=== PATIENT | female | born 1970 | race African-American/Black ===

== ENCOUNTER 2016-10-22 08:58 | Inpatient (IN) | payer MEDICAID ==
[~2016-10-22] VITALS: Ht 172.7 cm; Wt 98.4 kg
[~2016-10-22 08:58] MED LIST: CIPR-140 PO; INSU100V12 SQ; LITH300C3 PO; METF500T4 PO; OLAN5TAB2 PO
[2016-10-22 09:16] LABS: GLUCOSE,POINT OF CARE 127 MG/DL (70-110)
[2016-10-22 09:49] LABS: BASOPHILS % (AUTO) 0.8 % (0.0-2.0); EOSINOPHILS % (AUTO) 1.4 % (1.0-6.0); HEMOGLOBIN 14.6 g/dL (12.0-16.0); LYMPHOCYTES # (AUTO) 2.4 K/uL (1.0-4.8); LYMPHOCYTES % (AUTO) 52.8 % (22.0-44.0); MEAN CORPUSCULAR HGB CONC 33.8 G/dL (31.0-37.0); MEAN CORPUSCULAR VOLUME 95 fL (80-100); MONOCYTES # (AUTO) 0.3 K/uL (0.1-1.0); MONOCYTES % (AUTO) 7.5 % (2.0-9.0); NEUTROPHILS # (AUTO) 1.7 K/uL (1.8-7.7); NEUTROPHILS % (AUTO) 37.5 % (40.0-70.0); PLATELET COUNT (AUTO) 220 K/uL (150-450); RED BLOOD CELL COUNT(AUTO) 4.55 MIL/uL (4.00-5.20); RED CELL DISTRIBUTION WIDTH 14.7 % (11.5-14.5); WHITE BLOOD COUNT (AUTO) 4.5 K/uL (4.5-11.0)
[2016-10-22 10:00] LABS: ANION GAP 7 mmol/L (8-16); CALCIUM, TOTAL 9.1 mg/dL (8.8-10.5); CARBON DIOXIDE 27 mmol/L (22-29); CHLORIDE 104 mmol/L (98-107); CREATININE 0.95 mg/dL (0.60-1.30); GLOMERULAR FILTR. RATE CALC > 60 mL/min (>60); POTASSIUM 3.6 mmol/L (3.5-5.1); SODIUM SERUM 138 mmol/L (136-145); UREA NITROGEN, BLOOD 8 mg/dL (7-18)
[2016-10-22 10:06] LABS: ALANINE AMINOTRANSFERASE 75 U/L (12-78); ALBUMIN 3.5 g/dL (3.4-5.0); ASPARTATE AMINOTRANSFERASE 72 U/L (15-37); BILIRUBIN,TOTAL 0.3 mg/dL (0.1-1.0); TOTAL PROTEIN, SERUM 8.3 g/dL (6.4-8.2)
[2016-10-22 10:12] LABS: LITHIUM < 0.20 mmol/L (0.60-1.20)
[2016-10-22 10:14] LABS: APPEARANCE,URINE CLOUDY (CLEAR); GLUCOSE, URINE (UA) NEGATIVE (NEGATIVE); KETONES,URINE NEGATIVE (NEGATIVE); LEUKOCYTE ESTERASE ,URINE SMALL (NEGATIVE); OCCULT BLOOD,URINE NEGATIVE (NEGATIVE); PROTEIN,URINE NEGATIVE (NEGATIVE)
[2016-10-22 10:24] LABS: RBC,URINE None Seen /HPF (0-2)
[2016-10-22 10:25] LABS: SQUAMOUS EPITHELIAL CELL,UR Many /LPF (None Seen)
[2016-10-22] MEDS ORDERED: LORazepam 2 MG TABLET PO ONE (12:00)
[2016-10-22] MEDS ORDERED: OLANZapine 5 MG TABLET PO ONE (12:00)
[2016-10-22] MEDS ORDERED: HALOPERIDOL 5 MG TABLET PO PRN (12:15)
[2016-10-22] MEDS ORDERED: ZOLPIDEM TARTRATE 10 MG TABLET PO PRN (12:15)
[2016-10-22] MEDS ORDERED: TraMADol HCL 50 MG TABLET PO ONE (12:15)
[2016-10-22] MEDS ORDERED: CEPHALEXIN MONOHYDRATE 500 MG CAPSULE PO ONE (12:30)
[2016-10-22 14:15] LABS: GLUCOSE,POINT OF CARE 93 MG/DL (70-110)
[2016-10-22 16:08] VITALS: BP 108/68
[2016-10-22] MEDS: LITHIUM CARBONATE 300 MG CAPSULE PO SCH (16:26)
[2016-10-22] MEDS: LORazepam 2 MG TABLET PO PRN (16:26)
[2016-10-22] MEDS: CEPHALEXIN MONOHYDRATE 500 MG CAPSULE PO SCH (16:41)
[2016-10-22] MEDS ORDERED: ACETAMINOPHEN 325 MG TABLET PO PRN (17:15)
[2016-10-22] MEDS: OLANZapine 7.5 MG TABLET PO SCH (20:20)
[2016-10-22] MEDS ORDERED: INSULIN ASPART 100 UNITS/ML SQ PRN (22:00)
[2016-10-22] MEDS ORDERED: DEXTROSE 50%-WATER 25 GM/50 ML SYRINGE IVP PRN (22:00)
[2016-10-22] MEDS ORDERED: GLUCAGON,HUMAN RECOMBINANT 1 MG VIAL IM PRN (22:15)
[2016-10-23] MEDS: MetFORMIN HCL 500 MG TABLET PO SCH (06:19)
[2016-10-23 06:31] LABS: GLUCOSE,POINT OF CARE 118 MG/DL (70-110)
[2016-10-23 06:50] VITALS: BP 102/67
[2016-10-23 08:15] VITALS: BP 124/76
[2016-10-23] MEDS: INSULIN DETEMIR 100 UNITS/ML SQ SCH (09:00)
[2016-10-23] MEDS: LITHIUM CARBONATE 300 MG CAPSULE PO SCH ×2 (09:02→16:07)
[2016-10-23] MEDS: LORazepam 2 MG TABLET PO PRN (09:02)
[2016-10-23] MEDS: CEPHALEXIN MONOHYDRATE 500 MG CAPSULE PO SCH ×3 (09:02→16:07)
[2016-10-23] MEDS: CIPROFLOXACIN HCL 250 MG TABLET PO SCH ×2 (09:02→16:07)
[2016-10-23] MEDS: NICOTINE 14 MG/24 HOUR PATCH TD SCH (09:02)
[2016-10-23 16:09] VITALS: BP 132/68
[2016-10-23 16:56] LABS: GLUCOSE,POINT OF CARE 99 MG/DL (70-110)
[2016-10-23] MEDS: OLANZapine 7.5 MG TABLET PO SCH (20:39)
[2016-10-23 20:46] LABS: GLUCOSE COMMENT 1 Received Meds; GLUCOSE,POINT OF CARE 146 MG/DL (70-110)
[2016-10-23] MEDS: INSULIN ASPART 100 UNITS/ML SQ PRN (20:53)
[2016-10-24 04:51] VITALS: BP 106/65
[2016-10-24 06:06] LABS: GLUCOSE,POINT OF CARE 98 MG/DL (70-110)
[2016-10-24] MEDS: MetFORMIN HCL 500 MG TABLET PO SCH (06:32)
[2016-10-24] MEDS: CEPHALEXIN MONOHYDRATE 500 MG CAPSULE PO SCH ×3 (08:23→16:22)
[2016-10-24] MEDS: LITHIUM CARBONATE 300 MG CAPSULE PO SCH ×2 (08:23→16:22)
[2016-10-24] MEDS: CIPROFLOXACIN HCL 250 MG TABLET PO SCH ×2 (08:23→16:22)
[2016-10-24] MEDS: LORazepam 2 MG TABLET PO PRN ×2 (08:23→20:29)
[2016-10-24] MEDS: NICOTINE 14 MG/24 HOUR PATCH TD SCH (08:24)
[2016-10-24] MEDS: INSULIN DETEMIR 100 UNITS/ML SQ SCH (09:45)
[2016-10-24 12:22] LABS: GLUCOSE,POINT OF CARE 103 MG/DL (70-110)
[2016-10-24 16:08] VITALS: BP 125/72
[2016-10-24 16:37] LABS: GLUCOSE,POINT OF CARE 169 MG/DL (70-110)
[2016-10-24] MEDS: INSULIN ASPART 100 UNITS/ML SQ PRN (17:13)
[2016-10-24] MEDS: OLANZapine 7.5 MG TABLET PO SCH (20:24)
[2016-10-24 20:45] LABS: GLUCOSE,POINT OF CARE 108 MG/DL (70-110)
[2016-10-25] MEDS: MetFORMIN HCL 500 MG TABLET PO SCH (06:43)
[2016-10-25 06:46] LABS: GLUCOSE,POINT OF CARE 112 MG/DL (70-110)
[2016-10-25 07:07] VITALS: BP 116/67
[2016-10-25 08:03] VITALS: BP 109/79
[2016-10-25] MEDS: LITHIUM CARBONATE 300 MG CAPSULE PO SCH ×2 (09:22→16:32)
[2016-10-25] MEDS: CEPHALEXIN MONOHYDRATE 500 MG CAPSULE PO SCH ×3 (09:22→16:32)
[2016-10-25] MEDS: NICOTINE 14 MG/24 HOUR PATCH TD SCH (09:22)
[2016-10-25] MEDS: LORazepam 2 MG TABLET PO PRN ×2 (09:22→16:32)
[2016-10-25] MEDS: CIPROFLOXACIN HCL 250 MG TABLET PO SCH ×2 (09:22→16:32)
[2016-10-25] MEDS: INSULIN DETEMIR 100 UNITS/ML SQ SCH (09:25)
[2016-10-25 11:36] LABS: GLUCOSE,POINT OF CARE 104 MG/DL (70-110)
[2016-10-25 16:46] VITALS: BP 109/75
[2016-10-25] MEDS: INSULIN ASPART 100 UNITS/ML SQ PRN (17:15)
[2016-10-25 17:26] LABS: GLUCOSE COMMENT 1 Received Meds; GLUCOSE,POINT OF CARE 144 MG/DL (70-110)
[2016-10-25] MEDS: OLANZapine 7.5 MG TABLET PO SCH (20:49)
[2016-10-26 06:13] LABS: GLUCOSE,POINT OF CARE 95 MG/DL (70-110)
[2016-10-26] MEDS: MetFORMIN HCL 500 MG TABLET PO SCH (06:41)
[2016-10-26 08:03] VITALS: BP 100/56
[2016-10-26] MEDS: CEPHALEXIN MONOHYDRATE 500 MG CAPSULE PO SCH (08:19)
[2016-10-26] MEDS: LITHIUM CARBONATE 300 MG CAPSULE PO SCH (08:20)
[2016-10-26] MEDS: NICOTINE 14 MG/24 HOUR PATCH TD SCH (08:20)
[2016-10-26] MEDS: CIPROFLOXACIN HCL 250 MG TABLET PO SCH (08:20)
[2016-10-26] MEDS: LORazepam 2 MG TABLET PO PRN (08:28)
[2016-10-26] MEDS: INSULIN DETEMIR 100 UNITS/ML SQ SCH (08:56)
[2016-10-26 12:11] LABS: GLUCOSE,POINT OF CARE 104 MG/DL (70-110)
[2016-10-26] MEDS ORDERED: CEPH500 PO (12:41)
== END 2016-10-26 13:05 | disposition home or self-care (01) | DRG 750 ==
LOC: EMS 08:59 → B3A 12:22
PROVIDERS: ADMIT Psychiatry & Neurology Psychiatry; ATTEND Psychiatry & Neurology Psychiatry
DX: F25.9 Schizoaffective disorder, unspecified (principal); N39.0 Urinary tract infection, site not specified; R45.851 Suicidal ideations; E11.9 Type 2 diabetes mellitus without complications; F14.10 Cocaine abuse, uncomplicated; D25.9 Leiomyoma of uterus, unspecified; E87.6 Hypokalemia; F31.9 Bipolar disorder, unspecified; F17.210 Nicotine dependence, cigarettes, uncomplicated; G89.29 Other chronic pain; M54.9 Dorsalgia, unspecified; Z88.6 Allergy status to analgesic agent; Z79.899 Other long term (current) drug therapy
CPT/HCPCS: 82962; 87081; 87086; 99285; G0480

== ENCOUNTER 2016-11-01 20:31 | Inpatient (IN) | payer MEDICAID ==
[~2016-11-01] VITALS: Ht 172.7 cm; Wt 93.6 kg
[~2016-11-01 20:31] MED LIST changes: +CEPH500 PO
[2016-11-01 20:46] LABS: GLUCOSE,POINT OF CARE 91 MG/DL (70-110)
[2016-11-01 21:23] LABS: BASOPHILS # (AUTO) 0.09 K/uL (0.00-0.20); BASOPHILS % (AUTO) 1.4 % (0.0-2.0); EOSINOPHILS # (AUTO) 0.05 K/uL (0.00-0.70); EOSINOPHILS % (AUTO) 0.83 % (1.0-6.0); HEMATOCRIT 40.9 % (36-46); HEMOGLOBIN 13.8 g/dL (12.0-16.0); LYMPHOCYTES # (AUTO) 2.3 K/uL (1.0-4.8); LYMPHOCYTES % (AUTO) 35.5 % (22.0-44.0); MEAN CORPUSCULAR HEMOGLOBIN 31.6 pg (26.0-34.0); MEAN CORPUSCULAR HGB CONC 33.7 G/dL (31.0-37.0); MEAN CORPUSCULAR VOLUME 94 fL (80-100); MONOCYTES # (AUTO) 0.5 K/uL (0.1-1.0); MONOCYTES % (AUTO) 7.2 % (2.0-9.0); NEUTROPHILS # (AUTO) 3.6 K/uL (1.8-7.7); PLATELET COUNT (AUTO) 250 K/uL (150-450); RED BLOOD CELL COUNT(AUTO) 4.37 MIL/uL (4.00-5.20); RED CELL DISTRIBUTION WIDTH 14.5 % (11.5-14.5); WHITE BLOOD COUNT (AUTO) 6.5 K/uL (4.5-11.0)
[2016-11-01 21:29] LABS: ANION GAP 10 mmol/L (8-16); CALCIUM, TOTAL 9.1 mg/dL (8.8-10.5); CARBON DIOXIDE 26 mmol/L (22-29); CHLORIDE 101 mmol/L (98-107); CREATININE 0.81 mg/dL (0.60-1.30); GLOMERULAR FILTR. RATE CALC > 60 mL/min (>60); POTASSIUM 3.4 mmol/L (3.5-5.1); SODIUM SERUM 137 mmol/L (136-145); UREA NITROGEN, BLOOD 6 mg/dL (7-18)
[2016-11-01 21:35] LABS: ALANINE AMINOTRANSFERASE 76 U/L (12-78); ALBUMIN 3.7 g/dL (3.4-5.0); ASPARTATE AMINOTRANSFERASE 72 U/L (15-37); BILIRUBIN,TOTAL 0.3 mg/dL (0.1-1.0); TOTAL PROTEIN, SERUM 8.7 g/dL (6.4-8.2)
[2016-11-01 21:41] LABS: RBC MORPHOLOGY COMMENT NORMAL RBC MORPH
[2016-11-01] MEDS ORDERED: ZOLPIDEM TARTRATE 10 MG TABLET PO PRN (22:15)
[2016-11-01] MEDS ORDERED: HALOPERIDOL 5 MG TABLET PO ONE (22:30)
[2016-11-01] MEDS ORDERED: LORazepam 2 MG TABLET PO ONE (22:30)
[2016-11-01] MEDS ORDERED: DiphenhydrAMINE HCL 25 MG CAPSULE PO ONE (22:30)
[2016-11-01] MEDS ORDERED: KETOROLAC TROMETHAMINE 60 MG/2 ML VIAL IM ONE (23:00)
[2016-11-01] MEDS ORDERED: ACETAMINOPHEN 500 MG TABLET PO ONE (23:00)
[2016-11-01] MEDS ORDERED: POTASSIUM CHLORIDE 20 MEQ ER TABLET PO ONE (23:00)
[2016-11-02 00:23] VITALS: BP 101/72
[2016-11-02] MEDS: NICOTINE 14 MG/24 HOUR PATCH TD SCH (09:24)
[2016-11-02] MEDS ORDERED: POTASSIUM CHLORIDE 20 MEQ ER TABLET PO ONE (10:15)
[2016-11-02 10:40] VITALS: BP 100/62
[2016-11-02] MEDS: HALOPERIDOL 5 MG TABLET PO PRN (16:14)
[2016-11-02 16:23] VITALS: BP 101/66
[2016-11-02] MEDS: LITHIUM CARBONATE 300 MG CAPSULE PO SCH (16:43)
[2016-11-02] MEDS: OLANZapine 7.5 MG TABLET PO SCH (20:24)
[2016-11-03 03:58] VITALS: BP 103/67
[2016-11-03 06:20] LABS: GLUCOSE,POINT OF CARE 119 MG/DL (70-110)
[2016-11-03 08:41] VITALS: BP 108/63
[2016-11-03] MEDS: LITHIUM CARBONATE 300 MG CAPSULE PO SCH ×2 (10:32→16:57)
[2016-11-03] MEDS: NICOTINE 14 MG/24 HOUR PATCH TD SCH (10:34)
[2016-11-03] MEDS: HALOPERIDOL 5 MG TABLET PO PRN (13:48)
[2016-11-03 16:15] VITALS: BP 101/61
[2016-11-03 17:01] LABS: GLUCOSE,POINT OF CARE 128 MG/DL (70-110)
[2016-11-03] MEDS ORDERED: GLUCAGON,HUMAN RECOMBINANT 1 MG VIAL IM PRN (18:00)
[2016-11-03 20:30] LABS: GLUCOSE,POINT OF CARE 133 MG/DL (70-110)
[2016-11-03] MEDS: OLANZapine 7.5 MG TABLET PO SCH (20:44)
[2016-11-04 05:27] VITALS: BP 103/66
[2016-11-04] MEDS: LITHIUM CARBONATE 300 MG CAPSULE PO SCH ×2 (09:13→16:53)
[2016-11-04] MEDS: NICOTINE 14 MG/24 HOUR PATCH TD SCH (09:13)
[2016-11-04 10:00] VITALS: BP 108/70
[2016-11-04 11:26] LABS: GLUCOSE,POINT OF CARE 134 MG/DL (70-110)
[2016-11-04] MEDS: HALOPERIDOL 5 MG TABLET PO PRN (13:01)
[2016-11-04] MEDS: LORazepam 2 MG TABLET PO PRN (13:01)
[2016-11-04 16:00] VITALS: BP 108/74
[2016-11-04 16:56] LABS: GLUCOSE COMMENT 1 Received Meds; GLUCOSE,POINT OF CARE 162 MG/DL (70-110)
[2016-11-04] MEDS: INSULIN ASPART 100 UNITS/ML SQ PRN ×2 (17:09→21:25)
[2016-11-04] MEDS: OLANZapine 7.5 MG TABLET PO SCH (21:16)
[2016-11-05 00:48] VITALS: BP 103/69
[2016-11-05 06:45] LABS: GLUCOSE COMMENT 1 Received Meds; GLUCOSE,POINT OF CARE 147 MG/DL (70-110)
[2016-11-05 08:45] VITALS: BP 104/64
[2016-11-05] MEDS: NICOTINE 14 MG/24 HOUR PATCH TD SCH (09:03)
[2016-11-05] MEDS: LITHIUM CARBONATE 300 MG CAPSULE PO SCH ×2 (09:03→16:39)
[2016-11-05] MEDS: HALOPERIDOL 5 MG TABLET PO PRN ×2 (09:33→14:39)
[2016-11-05] MEDS: LORazepam 2 MG TABLET PO PRN ×2 (09:33→14:39)
[2016-11-05 11:56] LABS: GLUCOSE,POINT OF CARE 105 MG/DL (70-110)
[2016-11-05 16:10] VITALS: BP 98/74
[2016-11-05 16:56] LABS: GLUCOSE,POINT OF CARE 151 MG/DL (70-110)
[2016-11-05] MEDS: INSULIN ASPART 100 UNITS/ML SQ PRN ×2 (17:02→21:19)
[2016-11-05] MEDS: OLANZapine 7.5 MG TABLET PO SCH (21:02)
[2016-11-05 21:21] LABS: GLUCOSE,POINT OF CARE 192 MG/DL (70-110)
[2016-11-06 06:21] VITALS: BP 103/58
[2016-11-06 06:26] LABS: GLUCOSE,POINT OF CARE 121 MG/DL (70-110)
[2016-11-06 08:49] VITALS: BP 112/69
[2016-11-06] MEDS: NICOTINE 14 MG/24 HOUR PATCH TD SCH (08:49)
[2016-11-06] MEDS: LITHIUM CARBONATE 300 MG CAPSULE PO SCH (08:49)
[2016-11-06] MEDS: LORazepam 2 MG TABLET PO PRN (09:02)
[2016-11-06] MEDS: HALOPERIDOL 5 MG TABLET PO PRN (09:02)
== END 2016-11-06 13:30 | disposition home or self-care (01) | DRG 750 ==
LOC: EMS 20:32 → B2S 22:56
PROVIDERS: ADMIT Psychiatry & Neurology Psychiatry; ATTEND Psychiatry & Neurology Psychiatry
DX: F25.9 Schizoaffective disorder, unspecified (principal); R45.851 Suicidal ideations; E11.9 Type 2 diabetes mellitus without complications; D25.9 Leiomyoma of uterus, unspecified; F31.9 Bipolar disorder, unspecified; F17.210 Nicotine dependence, cigarettes, uncomplicated; E87.6 Hypokalemia; F14.90 Cocaine use, unspecified, uncomplicated; G89.29 Other chronic pain; Z79.899 Other long term (current) drug therapy; Z71.6 Tobacco abuse counseling
CPT/HCPCS: 82962; 87081; 99285; G0480

== ENCOUNTER 2016-11-10 07:35 | Inpatient (IN) | payer MEDICAID ==
[~2016-11-10] VITALS: Ht 172.7 cm; Wt 93.5 kg
[~2016-11-10 07:35] MED LIST changes: -CEPH500 PO; -CIPR-140 PO; -INSU100V12 SQ; -METF500T4 PO
[2016-11-10] MEDS ORDERED: HALO1 PO (07:40)
[2016-11-10 07:46] LABS: GLUCOSE,POINT OF CARE 119 MG/DL (70-110)
[2016-11-10 08:08] LABS: BASOPHILS % (AUTO) 0.7 % (0.0-2.0); EOSINOPHILS % (AUTO) 1.6 % (1.0-6.0); HEMATOCRIT 44.6 % (36-46); HEMOGLOBIN 14.6 g/dL (12.0-16.0); MEAN CORPUSCULAR HEMOGLOBIN 31.2 pg (26.0-34.0); MEAN CORPUSCULAR HGB CONC 32.8 G/dL (31.0-37.0); MEAN CORPUSCULAR VOLUME 95 fL (80-100); MONOCYTES # (AUTO) 0.6 K/uL (0.1-1.0); MONOCYTES % (AUTO) 10.4 % (2.0-9.0); NEUTROPHILS # (AUTO) 2.4 K/uL (1.8-7.7); NEUTROPHILS % (AUTO) 39.3 % (40.0-70.0); PLATELET COUNT (AUTO) 233 K/uL (150-450); RED BLOOD CELL COUNT(AUTO) 4.69 MIL/uL (4.00-5.20); RED CELL DISTRIBUTION WIDTH 14.6 % (11.5-14.5); WHITE BLOOD COUNT (AUTO) 6.2 K/uL (4.5-11.0)
[2016-11-10 08:18] LABS: ANION GAP 9 mmol/L (8-16); CALCIUM, TOTAL 8.9 mg/dL (8.8-10.5); CARBON DIOXIDE 27 mmol/L (22-29); CHLORIDE 106 mmol/L (98-107); CREATININE 0.85 mg/dL (0.60-1.30); GLOMERULAR FILTR. RATE CALC > 60 mL/min (>60); SODIUM SERUM 142 mmol/L (136-145); UREA NITROGEN, BLOOD 9 mg/dL (7-18)
[2016-11-10 08:23] LABS: ALANINE AMINOTRANSFERASE 76 U/L (12-78); ALBUMIN 3.5 g/dL (3.4-5.0); ASPARTATE AMINOTRANSFERASE 75 U/L (15-37); BILIRUBIN,TOTAL 0.3 mg/dL (0.1-1.0); TOTAL PROTEIN, SERUM 8.8 g/dL (6.4-8.2)
[2016-11-10] MEDS ORDERED: ZOLPIDEM TARTRATE 10 MG TABLET PO PRN (08:45)
[2016-11-10 08:56] LABS: GLUCOSE,POINT OF CARE 145 MG/DL (70-110)
[2016-11-10] MEDS: LORazepam 2 MG TABLET PO PRN (16:09)
[2016-11-10] MEDS: HALOPERIDOL 5 MG TABLET PO PRN (16:09)
[2016-11-10 18:31] VITALS: BP 123/81
[2016-11-10] MEDS ORDERED: OLAN7.5T2 PO (19:22)
[2016-11-10] MEDS ORDERED: DEXTROSE 50%-WATER 25 GM/50 ML SYRINGE IVP PRN (19:30)
[2016-11-10 21:41] LABS: GLUCOSE,POINT OF CARE 128 MG/DL (70-110)
[2016-11-11 06:07] LABS: GLUCOSE,POINT OF CARE 127 MG/DL (70-110)
[2016-11-11] MEDS: MetFORMIN HCL 500 MG TABLET PO SCH (07:06)
[2016-11-11] MEDS: INSULIN ASPART 100 UNITS/ML SQ PRN ×3 (07:07→12:15)
[2016-11-11] MEDS: INSULIN DETEMIR 100 UNITS/ML SQ SCH (09:00)
[2016-11-11 09:19] VITALS: BP 107/62
[2016-11-11 11:36] LABS: GLUCOSE,POINT OF CARE 141 MG/DL (70-110)
[2016-11-11] MEDS: LORazepam 2 MG TABLET PO PRN (12:21)
[2016-11-11] MEDS: HALOPERIDOL 5 MG TABLET PO PRN (12:21)
[2016-11-11] MEDS: LITHIUM CARBONATE 300 MG CAPSULE PO SCH (16:47)
[2016-11-11 16:51] LABS: GLUCOSE,POINT OF CARE 111 MG/DL (70-110)
[2016-11-11 20:25] VITALS: BP 113/76
[2016-11-11] MEDS: OLANZapine 7.5 MG TABLET PO SCH (21:11)
[2016-11-11 21:21] LABS: GLUCOSE,POINT OF CARE 115 MG/DL (70-110)
[2016-11-12 05:46] LABS: GLUCOSE,POINT OF CARE 119 MG/DL (70-110)
[2016-11-12] MEDS: MetFORMIN HCL 500 MG TABLET PO SCH (06:53)
[2016-11-12 08:30] VITALS: BP 106/73
[2016-11-12] MEDS: LITHIUM CARBONATE 300 MG CAPSULE PO SCH ×2 (09:34→16:44)
[2016-11-12] MEDS: HALOPERIDOL 5 MG TABLET PO PRN ×2 (09:36→16:01)
[2016-11-12] MEDS: LORazepam 2 MG TABLET PO PRN ×2 (09:36→16:01)
[2016-11-12 09:46] LABS: GLUCOSE,POINT OF CARE 131 MG/DL (70-110)
[2016-11-12] MEDS: INSULIN DETEMIR 100 UNITS/ML SQ SCH (09:49)
[2016-11-12 12:01] LABS: GLUCOSE,POINT OF CARE 92 MG/DL (70-110)
[2016-11-12] MEDS: INSULIN ASPART 100 UNITS/ML SQ PRN (13:10)
[2016-11-12 16:05] LABS: GLUCOSE,POINT OF CARE 110 MG/DL (70-110)
[2016-11-12 17:38] VITALS: BP 105/67
[2016-11-12] MEDS: OLANZapine 7.5 MG TABLET PO SCH (20:47)
[2016-11-12 20:57] LABS: GLUCOSE,POINT OF CARE 133 MG/DL (70-110)
[2016-11-13 05:37] LABS: GLUCOSE,POINT OF CARE 96 MG/DL (70-110)
[2016-11-13] MEDS: MetFORMIN HCL 500 MG TABLET PO SCH (06:37)
[2016-11-13 08:00] VITALS: BP 110/74
[2016-11-13] MEDS: LITHIUM CARBONATE 300 MG CAPSULE PO SCH ×2 (08:04→16:28)
[2016-11-13] MEDS: LORazepam 2 MG TABLET PO PRN ×2 (08:04→15:21)
[2016-11-13] MEDS: HALOPERIDOL 5 MG TABLET PO PRN ×2 (08:04→15:20)
[2016-11-13 08:06] LABS: GLUCOSE,POINT OF CARE 136 MG/DL (70-110)
[2016-11-13] MEDS: INSULIN DETEMIR 100 UNITS/ML SQ SCH (09:00)
[2016-11-13] MEDS: INSULIN ASPART 100 UNITS/ML SQ PRN ×2 (11:40→17:19)
[2016-11-13 11:41] LABS: GLUCOSE,POINT OF CARE 104 MG/DL (70-110)
[2016-11-13 16:36] LABS: GLUCOSE COMMENT 1 Received Meds; GLUCOSE,POINT OF CARE 167 MG/DL (70-110)
[2016-11-13 19:04] VITALS: BP 120/79
[2016-11-13] MEDS: OLANZapine 7.5 MG TABLET PO SCH (20:04)
[2016-11-13 20:07] LABS: GLUCOSE,POINT OF CARE 138 MG/DL (70-110)
[2016-11-14 05:42] LABS: GLUCOSE,POINT OF CARE 130 MG/DL (70-110)
[2016-11-14] MEDS: MetFORMIN HCL 500 MG TABLET PO SCH (06:50)
[2016-11-14 08:00] VITALS: BP 108/64
[2016-11-14] MEDS: INSULIN DETEMIR 100 UNITS/ML SQ SCH (08:22)
[2016-11-14] MEDS: LITHIUM CARBONATE 300 MG CAPSULE PO SCH (10:15)
[2016-11-14 11:32] LABS: GLUCOSE,POINT OF CARE 142 MG/DL (70-110)
[2016-11-14] MEDS: INSULIN ASPART 100 UNITS/ML SQ PRN (11:40)
[2016-11-14] MEDS ORDERED: INSU100V12 SQ (13:07)
[2016-11-14] MEDS ORDERED: METF500T4 PO (13:07)
== END 2016-11-14 14:10 | disposition home or self-care (01) | DRG 750 ==
LOC: EMS 07:41 → 3EI 17:14
PROVIDERS: ADMIT Psychiatry & Neurology Psychiatry; ATTEND Psychiatry & Neurology Psychiatry
DX: F25.9 Schizoaffective disorder, unspecified (principal); R45.851 Suicidal ideations; E11.9 Type 2 diabetes mellitus without complications; F31.9 Bipolar disorder, unspecified; G89.29 Other chronic pain; M54.9 Dorsalgia, unspecified; F17.210 Nicotine dependence, cigarettes, uncomplicated; Z91.011 Allergy to milk products; Z79.899 Other long term (current) drug therapy
CPT/HCPCS: 82962; 87081; 99285; G0480

== ENCOUNTER 2016-11-17 08:54 | Emergency (ER) | payer MEDICAID ==
[~2016-11-17] VITALS: Ht 172.7 cm; Wt 93.6 kg
[~2016-11-17 08:54] MED LIST changes: +INSU100V12 SQ; +METF500T4 PO; -OLAN5TAB2 PO; +OLAN7.5T2 PO
[2016-11-17] MEDS ORDERED: HALO2 PO (09:06)
[2016-11-17 09:17] VITALS: BP 105/79
[2016-11-17 09:17] LABS: GLUCOSE,POINT OF CARE 127 MG/DL (70-110)
[2016-11-17 09:19] LABS: BASOPHILS % (AUTO) 1.2 % (0.0-2.0); EOSINOPHILS % (AUTO) 2.4 % (1.0-6.0); HEMATOCRIT 44.1 % (36-46); HEMOGLOBIN 14.5 g/dL (12.0-16.0); LYMPHOCYTES # (AUTO) 2.5 K/uL (1.0-4.8); LYMPHOCYTES % (AUTO) 45.4 % (22.0-44.0); MEAN CORPUSCULAR HGB CONC 32.8 G/dL (31.0-37.0); MEAN CORPUSCULAR VOLUME 95 fL (80-100); MONOCYTES # (AUTO) 0.6 K/uL (0.1-1.0); MONOCYTES % (AUTO) 10.6 % (2.0-9.0); NEUTROPHILS # (AUTO) 2.2 K/uL (1.8-7.7); NEUTROPHILS % (AUTO) 40.4 % (40.0-70.0); PLATELET COUNT (AUTO) 238 K/uL (150-450); RED BLOOD CELL COUNT(AUTO) 4.67 MIL/uL (4.00-5.20); RED CELL DISTRIBUTION WIDTH 14.6 % (11.5-14.5); WHITE BLOOD COUNT (AUTO) 5.5 K/uL (4.5-11.0)
[2016-11-17 09:32] LABS: ANION GAP 8 mmol/L (8-16); CALCIUM, TOTAL 8.9 mg/dL (8.8-10.5); CARBON DIOXIDE 27 mmol/L (22-29); CHLORIDE 104 mmol/L (98-107); CREATININE 0.92 mg/dL (0.60-1.30); GLOMERULAR FILTR. RATE CALC > 60 mL/min (>60); POTASSIUM 3.8 mmol/L (3.5-5.1); SODIUM SERUM 139 mmol/L (136-145); UREA NITROGEN, BLOOD 8 mg/dL (7-18)
[2016-11-17 09:37] LABS: ALANINE AMINOTRANSFERASE 66 U/L (12-78); ALBUMIN 3.6 g/dL (3.4-5.0); ASPARTATE AMINOTRANSFERASE 61 U/L (15-37); BILIRUBIN,TOTAL 0.5 mg/dL (0.1-1.0); TOTAL PROTEIN, SERUM 8.4 g/dL (6.4-8.2)
== END 2016-11-17 10:53 | disposition home or self-care (01) ==
LOC: EMS 08:56 → EEVIPCON 08:56 → EMS 10:53
DX: F31.9 Bipolar disorder, unspecified (principal); E11.9 Type 2 diabetes mellitus without complications; F20.9 Schizophrenia, unspecified; F17.210 Nicotine dependence, cigarettes, uncomplicated; Z91.011 Allergy to milk products
CPT/HCPCS: 36415; 80053; 80307; 82962; 85025; 99284; G0480

== ENCOUNTER 2017-06-19 12:04 | Inpatient (IN) | payer MEDICAID ==
[~2017-06-19] VITALS: Ht 172.7 cm; Wt 96.6 kg
[~2017-06-19 12:04] MED LIST changes: -LITH300C3 PO; -OLAN7.5T2 PO; +QUET200T PO; +QUET25TA PO
[2017-06-19 12:50] LABS: BASOPHILS % (AUTO) 0.6 % (0.0-2.0); EOSINOPHILS % (AUTO) 0 % (1.0-6.0); HEMATOCRIT 41.2 % (36-46); HEMOGLOBIN 14.1 g/dL (12.0-16.0); LYMPHOCYTES # (AUTO) 1.7 K/uL (1.0-4.8); LYMPHOCYTES % (AUTO) 20.4 % (22.0-44.0); MEAN CORPUSCULAR HGB CONC 34.2 G/dL (31.0-37.0); MEAN CORPUSCULAR VOLUME 94 fL (80-100); MONOCYTES # (AUTO) 0.4 K/uL (0.1-1.0); MONOCYTES % (AUTO) 5.1 % (2.0-9.0); NEUTROPHILS # (AUTO) 6.2 K/uL (1.8-7.7); NEUTROPHILS % (AUTO) 73.9 % (40.0-70.0); PLATELET COUNT (AUTO) 239 K/uL (150-450); RED BLOOD CELL COUNT(AUTO) 4.39 MIL/uL (4.00-5.20); RED CELL DISTRIBUTION WIDTH 13.3 % (11.5-14.5); WHITE BLOOD COUNT (AUTO) 8.3 K/uL (4.5-11.0)
[2017-06-19 12:59] LABS: ANION GAP 14 mmol/L (8-16); CALCIUM, TOTAL 9.5 mg/dL (8.8-10.5); CARBON DIOXIDE 21 mmol/L (22-29); CHLORIDE 102 mmol/L (98-107); CREATININE 0.92 mg/dL (0.60-1.30); GLOMERULAR FILTR. RATE CALC > 60 mL/min (>60); POTASSIUM 3.6 mmol/L (3.5-5.1); SODIUM SERUM 137 mmol/L (136-145); UREA NITROGEN, BLOOD 8 mg/dL (7-18)
[2017-06-19 13:04] LABS: ALANINE AMINOTRANSFERASE 96 U/L (12-78); ALBUMIN 3.8 g/dL (3.4-5.0); ASPARTATE AMINOTRANSFERASE 77 U/L (15-37); BILIRUBIN,TOTAL 0.4 mg/dL (0.1-1.0); TOTAL PROTEIN, SERUM 9.6 g/dL (6.4-8.2)
[2017-06-19] MEDS ORDERED: TRAZ-144 PO (13:09)
[2017-06-19] MEDS ORDERED: ZOLP5TAB2 PO (13:09)
[2017-06-19] MEDS ORDERED: PERTUSS(ACELL),DIPH,TET VAC/PF 0.5 ML VIAL IM ONE (14:15)
[2017-06-19] MEDS ORDERED: ACETAMINOPHEN 325 MG TABLET PO ONE (14:15)
[2017-06-19] MEDS ORDERED: QUEtiapine FUMARATE 100 MG TABLET PO ONE (14:45)
[2017-06-19 16:43] LABS: GLUCOSE,POINT OF CARE 149 MG/DL (70-110)
[2017-06-19] MEDS ORDERED: LORazepam 2 MG TABLET PO PRN (19:00)
[2017-06-19 20:05] VITALS: BP 116/97
[2017-06-19] MEDS: QUEtiapine FUMARATE 200 MG TABLET PO SCH (20:41)
[2017-06-19] MEDS: ZOLPIDEM TARTRATE 10 MG TABLET PO PRN (21:07)
[2017-06-19] MEDS ORDERED: INSULIN ASPART 100 UNITS/ML SQ PRN (21:30)
[2017-06-19] MEDS ORDERED: DEXTROSE 50%-WATER 25 GM/50 ML SYRINGE IVP PRN (21:30)
[2017-06-20] MEDS ORDERED: NICOTINE 7 MG/24 HOUR PATCH TD SCH (09:00)
[2017-06-20] MEDS: INSULIN DETEMIR 100 UNITS/ML SQ SCH (09:00)
[2017-06-20] MEDS: QUEtiapine FUMARATE 25 MG TABLET PO SCH (09:03)
[2017-06-20] MEDS: MetFORMIN HCL 500 MG TABLET PO SCH ×2 (09:03→18:46)
[2017-06-20 10:34] LABS: GLUCOSE,POINT OF CARE 237 MG/DL (70-110)
[2017-06-20 12:08] LABS: GLUCOSE,POINT OF CARE 140 MG/DL (70-110)
[2017-06-20 16:31] VITALS: BP 102/74
[2017-06-20 18:02] LABS: GLUCOSE,POINT OF CARE 99 MG/DL (70-110)
[2017-06-20] MEDS: QUEtiapine FUMARATE 200 MG TABLET PO SCH (21:03)
[2017-06-20] MEDS: GABAPENTIN 300 MG CAPSULE PO SCH (21:37)
[2017-06-21] MEDS: MetFORMIN HCL 500 MG TABLET PO SCH ×2 (08:32→16:39)
[2017-06-21] MEDS: QUEtiapine FUMARATE 25 MG TABLET PO SCH (08:32)
[2017-06-21] MEDS: INSULIN DETEMIR 100 UNITS/ML SQ SCH (09:00)
[2017-06-21] MEDS: NICOTINE 14 MG/24 HOUR PATCH TD SCH (11:32)
[2017-06-21 12:49] VITALS: BP 109/68
[2017-06-21] MEDS ORDERED: ACETAMINOPHEN 325 MG TABLET PO PRN (13:15)
[2017-06-21] MEDS ORDERED: IBUPROFEN 400 MG TABLET PO PRN (13:15)
[2017-06-21] MEDS: TraMADol HCL 50 MG TABLET PO PRN (17:08)
[2017-06-21 17:09] VITALS: BP 112/68
[2017-06-21] MEDS: GABAPENTIN 300 MG CAPSULE PO SCH (20:01)
[2017-06-21] MEDS: QUEtiapine FUMARATE 200 MG TABLET PO SCH (20:07)
[2017-06-22 01:16] VITALS: BP 110/82
[2017-06-22 06:03] LABS: GLUCOSE,POINT OF CARE 110 MG/DL (70-110)
[2017-06-22 06:03] LABS: GLUCOSE,POINT OF CARE 101 MG/DL (70-110)
[2017-06-22 06:03] LABS: GLUCOSE,POINT OF CARE 126 MG/DL (70-110)
[2017-06-22 08:07] VITALS: BP 112/81
[2017-06-22] MEDS: MetFORMIN HCL 500 MG TABLET PO SCH ×2 (08:39→17:54)
[2017-06-22] MEDS: QUEtiapine FUMARATE 25 MG TABLET PO SCH (08:40)
[2017-06-22] MEDS: NICOTINE 14 MG/24 HOUR PATCH TD SCH (08:43)
[2017-06-22] MEDS: INSULIN DETEMIR 100 UNITS/ML SQ SCH (09:07)
[2017-06-22 16:49] VITALS: BP 122/84
[2017-06-22 19:31] VITALS: BP 112/66
[2017-06-22] MEDS: TraMADol HCL 50 MG TABLET PO PRN (19:48)
[2017-06-22 19:57] LABS: GLUCOSE,POINT OF CARE 119 MG/DL (70-110)
[2017-06-22] MEDS: GABAPENTIN 300 MG CAPSULE PO SCH (20:05)
[2017-06-22] MEDS: QUEtiapine FUMARATE 200 MG TABLET PO SCH (20:05)
[2017-06-23] VITALS: BP 105/63
[2017-06-23] MEDS ORDERED: GLUCAGON,HUMAN RECOMBINANT 1 MG VIAL IM PRN (03:00)
[2017-06-23] MEDS ORDERED: INSULIN ASPART 100 UNITS/ML SQ PRN (03:00)
[2017-06-23] MEDS: MetFORMIN HCL 500 MG TABLET PO SCH ×2 (07:16→17:38)
[2017-06-23 07:22] LABS: GLUCOSE,POINT OF CARE 104 MG/DL (70-110)
[2017-06-23 08:35] VITALS: BP 105/68
[2017-06-23] MEDS: NICOTINE 14 MG/24 HOUR PATCH TD SCH (08:59)
[2017-06-23] MEDS: QUEtiapine FUMARATE 100 MG TABLET PO PRN ×3 (08:59→09:03)
[2017-06-23] MEDS: INSULIN DETEMIR 100 UNITS/ML SQ SCH (09:01)
[2017-06-23] MEDS: QUEtiapine FUMARATE 25 MG TABLET PO SCH (09:06)
[2017-06-23 12:22] LABS: GLUCOSE COMMENT 1 Received Meds; GLUCOSE,POINT OF CARE 103 MG/DL (70-110)
[2017-06-23] MEDS: TraMADol HCL 50 MG TABLET PO PRN (16:38)
[2017-06-23 16:54] VITALS: BP 106/60
[2017-06-23] MEDS: GABAPENTIN 300 MG CAPSULE PO SCH (20:02)
[2017-06-23] MEDS: QUEtiapine FUMARATE 200 MG TABLET PO SCH (20:02)
[2017-06-23] MEDS: ZOLPIDEM TARTRATE 10 MG TABLET PO PRN (20:54)
[2017-06-24 06:14] VITALS: BP 106/69
[2017-06-24 06:22] LABS: GLUCOSE,POINT OF CARE 96 MG/DL (70-110)
[2017-06-24] MEDS: MetFORMIN HCL 500 MG TABLET PO SCH ×2 (07:05→17:24)
[2017-06-24 09:04] VITALS: BP 103/68
[2017-06-24] MEDS: QUEtiapine FUMARATE 25 MG TABLET PO SCH (09:52)
[2017-06-24] MEDS: INSULIN DETEMIR 100 UNITS/ML SQ SCH (09:53)
[2017-06-24] MEDS: NICOTINE 14 MG/24 HOUR PATCH TD SCH (09:54)
[2017-06-24 10:02] LABS: GLUCOSE COMMENT 1 Received Meds; GLUCOSE,POINT OF CARE 142 MG/DL (70-110)
[2017-06-24 16:48] VITALS: BP 112/67
[2017-06-24] MEDS: TraMADol HCL 50 MG TABLET PO PRN (17:25)
[2017-06-24] MEDS: QUEtiapine FUMARATE 200 MG TABLET PO SCH (20:34)
[2017-06-24] MEDS: GABAPENTIN 300 MG CAPSULE PO SCH (20:34)
[2017-06-24] MEDS: ZOLPIDEM TARTRATE 10 MG TABLET PO PRN (20:36)
[2017-06-25 03:24] VITALS: BP 109/68
[2017-06-25 06:08] LABS: GLUCOSE,POINT OF CARE 101 MG/DL (70-110)
[2017-06-25] MEDS: MetFORMIN HCL 500 MG TABLET PO SCH ×2 (06:46→16:41)
[2017-06-25 08:58] VITALS: BP 110/61
[2017-06-25] MEDS: NICOTINE 14 MG/24 HOUR PATCH TD SCH (09:37)
[2017-06-25] MEDS: QUEtiapine FUMARATE 25 MG TABLET PO SCH (09:37)
[2017-06-25] MEDS: INSULIN DETEMIR 100 UNITS/ML SQ SCH (09:42)
[2017-06-25] MEDS: TraMADol HCL 50 MG TABLET PO PRN (14:00)
[2017-06-25 14:01] VITALS: BP 106/73
[2017-06-25 16:42] VITALS: BP 110/82
[2017-06-25] MEDS: GABAPENTIN 300 MG CAPSULE PO SCH (20:33)
[2017-06-25] MEDS: ZOLPIDEM TARTRATE 10 MG TABLET PO PRN (20:33)
[2017-06-25] MEDS: QUEtiapine FUMARATE 200 MG TABLET PO SCH (20:33)
[2017-06-26 06:05] VITALS: BP 104/66
[2017-06-26] MEDS: MetFORMIN HCL 500 MG TABLET PO SCH (07:16)
[2017-06-26 08:24] VITALS: BP 102/68
[2017-06-26 09:15] VITALS: BP 106/65
[2017-06-26] MEDS: QUEtiapine FUMARATE 25 MG TABLET PO SCH (09:16)
[2017-06-26] MEDS: TraMADol HCL 50 MG TABLET PO PRN (09:17)
[2017-06-26] MEDS: INSULIN DETEMIR 100 UNITS/ML SQ SCH (09:28)
[2017-06-26] MEDS: NICOTINE 14 MG/24 HOUR PATCH TD SCH (09:29)
[2017-06-26 10:19] LABS: GLUCOSE,POINT OF CARE 121 MG/DL (70-110)
[2017-06-26 10:19] LABS: GLUCOSE,POINT OF CARE 98 MG/DL (70-110)
[2017-06-26] MEDS ORDERED: GABA-531 PO (13:17)
== END 2017-06-26 14:20 | disposition home or self-care (01) | DRG 750 ==
LOC: EMS 12:06 → AHU 20:00 → EMS 20:06 → AHU 06-21 13:46 → B2S 06-22 18:38
DX: F25.1 Schizoaffective disorder, depressive type (principal); E11.9 Type 2 diabetes mellitus without complications; R45.851 Suicidal ideations; F14.10 Cocaine abuse, uncomplicated; F10.10 Alcohol abuse, uncomplicated; F17.210 Nicotine dependence, cigarettes, uncomplicated; G89.29 Other chronic pain; S61.512A Laceration without foreign body of left wrist, initial encounter; Y90.0 Blood alcohol level of less than 20 mg/100 ml; Z79.899 Other long term (current) drug therapy; W45.8XXA Other foreign body or object entering through skin, initial encounter; Y93.89 Activity, other specified; Y92.89 Other specified places as the place of occurrence of the external cause; Y99.8 Other external cause status; Z91.011 Allergy to milk products
CPT/HCPCS: 82962; 87081; 90715; 99285; G0480

== ENCOUNTER 2017-06-30 12:27 | Inpatient (IN) | payer MEDICAID ==
[~2017-06-30] VITALS: Ht 172.7 cm; Wt 93.6 kg
[~2017-06-30 12:27] MED LIST changes: +GABA-531 PO
[2017-06-30 13:03] LABS: GLUCOSE,POINT OF CARE 119 MG/DL (70-110)
[2017-06-30 13:13] LABS: BASOPHILS # (AUTO) 0.03 K/uL (0.00-0.20); BASOPHILS % (AUTO) 0.4 % (0.0-2.0); EOSINOPHILS # (AUTO) 0.07 K/uL (0.00-0.70); EOSINOPHILS % (AUTO) 0.88 % (1.0-6.0); HEMATOCRIT 41.4 % (36-46); HEMOGLOBIN 14.3 g/dL (12.0-16.0); MEAN CORPUSCULAR HEMOGLOBIN 32.3 pg (26.0-34.0); MEAN CORPUSCULAR HGB CONC 34.5 G/dL (31.0-37.0); MEAN CORPUSCULAR VOLUME 94 fL (80-100); MONOCYTES # (AUTO) 0.7 K/uL (0.1-1.0); MONOCYTES % (AUTO) 9.1 % (2.0-9.0); NEUTROPHILS # (AUTO) 3.9 K/uL (1.8-7.7); NEUTROPHILS % (AUTO) 50.6 % (40.0-70.0); PLATELET COUNT (AUTO) 247 K/uL (150-450); RED BLOOD CELL COUNT(AUTO) 4.43 MIL/uL (4.00-5.20); RED CELL DISTRIBUTION WIDTH 13.2 % (11.5-14.5); WHITE BLOOD COUNT (AUTO) 7.7 K/uL (4.5-11.0)
[2017-06-30] MEDS ORDERED: HALO10 PO (13:24)
[2017-06-30] MEDS ORDERED: INSU100V12 SQ (13:24)
[2017-06-30 13:34] LABS: ANION GAP 10 mmol/L (8-16); CALCIUM, TOTAL 9.1 mg/dL (8.8-10.5); CARBON DIOXIDE 26 mmol/L (22-29); CHLORIDE 102 mmol/L (98-107); CREATININE 0.92 mg/dL (0.60-1.30); GLOMERULAR FILTR. RATE CALC > 60 mL/min (>60); POTASSIUM 3.4 mmol/L (3.5-5.1); SODIUM SERUM 138 mmol/L (136-145); UREA NITROGEN, BLOOD 9 mg/dL (7-18)
[2017-06-30 13:40] LABS: ALANINE AMINOTRANSFERASE 71 U/L (12-78); ALBUMIN 3.8 g/dL (3.4-5.0); ASPARTATE AMINOTRANSFERASE 62 U/L (15-37); BILIRUBIN,TOTAL 0.4 mg/dL (0.1-1.0); TOTAL PROTEIN, SERUM 9.5 g/dL (6.4-8.2)
[2017-06-30] MEDS ORDERED: DEXTROSE 50%-WATER 25 GM/50 ML SYRINGE IVP PRN (14:00)
[2017-06-30] MEDS: ACETAMINOPHEN 500 MG TABLET PO ONE ×2 (14:27→15:15)
[2017-06-30 15:36] VITALS: BP 126/78
[2017-06-30] MEDS ORDERED: ACETAMINOPHEN 325 MG TABLET PO PRN (16:00)
[2017-06-30] MEDS ORDERED: IBUPROFEN 400 MG TABLET PO PRN (16:00)
[2017-06-30] MEDS: LORazepam 2 MG TABLET PO PRN (17:11)
[2017-06-30] MEDS: MetFORMIN HCL 500 MG TABLET PO SCH (17:34)
[2017-06-30 19:06] VITALS: BP 124/82
[2017-06-30] MEDS: GABAPENTIN 300 MG CAPSULE PO SCH (20:13)
[2017-06-30] MEDS: QUEtiapine FUMARATE 200 MG TABLET PO SCH (20:13)
[2017-06-30] MEDS: HALOPERIDOL 5 MG TABLET PO PRN (20:13)
[2017-07-01 05:52] LABS: GLUCOSE,POINT OF CARE 98 MG/DL (70-110)
[2017-07-01] MEDS: MetFORMIN HCL 500 MG TABLET PO SCH ×2 (06:21→17:22)
[2017-07-01] MEDS ORDERED: PNEUMOCOCCAL VACCINE POLYVALENT 0.5 ML VIAL [PPSV23] IM ONE (06:45)
[2017-07-01] MEDS ORDERED: INFLUENZA VIRUS VACCINE QVS 2017-18 (3YR+)/PF 60 MCG/0.5 ML SYRINGE IM ONE (06:45)
[2017-07-01 07:03] LABS: CHOL/HDL RATIO 2.9 (3.9-5.7)
[2017-07-01] MEDS: NICOTINE 14 MG/24 HOUR PATCH TD SCH (08:37)
[2017-07-01] MEDS: QUEtiapine FUMARATE 25 MG TABLET PO SCH (08:37)
[2017-07-01] MEDS: INSULIN DETEMIR 100 UNITS/ML SQ SCH (08:39)
[2017-07-01 10:01] VITALS: BP 116/71
[2017-07-01 17:11] VITALS: BP 116/53
[2017-07-01 17:14] VITALS: BP 122/68
[2017-07-01] MEDS: TraMADol HCL 50 MG TABLET PO PRN (17:14)
[2017-07-01] MEDS: GABAPENTIN 300 MG CAPSULE PO SCH (20:20)
[2017-07-01] MEDS: QUEtiapine FUMARATE 200 MG TABLET PO SCH (20:20)
[2017-07-01] MEDS: HALOPERIDOL 5 MG TABLET PO PRN (20:20)
[2017-07-02 05:28] LABS: GLUCOSE COMMENT 1 Received Meds; GLUCOSE,POINT OF CARE 111 MG/DL (70-110)
[2017-07-02] MEDS: INSULIN ASPART 100 UNITS/ML SQ PRN (06:45)
[2017-07-02] MEDS: MetFORMIN HCL 500 MG TABLET PO SCH ×2 (06:51→17:04)
[2017-07-02] MEDS: QUEtiapine FUMARATE 25 MG TABLET PO SCH (08:48)
[2017-07-02] MEDS: INSULIN DETEMIR 100 UNITS/ML SQ SCH (08:54)
[2017-07-02] MEDS: NICOTINE 14 MG/24 HOUR PATCH TD SCH (08:55)
[2017-07-02 09:54] VITALS: BP 115/88
[2017-07-02] MEDS: LORazepam 2 MG TABLET PO PRN (15:59)
[2017-07-02 16:51] VITALS: BP 119/54
[2017-07-02 16:52] VITALS: BP 113/54
[2017-07-02] MEDS: TraMADol HCL 50 MG TABLET PO PRN (16:55)
[2017-07-02 17:52] VITALS: BP 124/74
[2017-07-02] MEDS: QUEtiapine FUMARATE 200 MG TABLET PO SCH (20:59)
[2017-07-02] MEDS: ZOLPIDEM TARTRATE 10 MG TABLET PO PRN (20:59)
[2017-07-02] MEDS: HALOPERIDOL 5 MG TABLET PO PRN (20:59)
[2017-07-02] MEDS: GABAPENTIN 300 MG CAPSULE PO SCH (21:00)
[2017-07-03] MEDS: INSULIN ASPART 100 UNITS/ML SQ PRN (06:44)
[2017-07-03] MEDS: MetFORMIN HCL 500 MG TABLET PO SCH ×2 (06:45→17:24)
[2017-07-03 08:15] VITALS: BP 105/61
[2017-07-03] MEDS: QUEtiapine FUMARATE 25 MG TABLET PO SCH (08:47)
[2017-07-03] MEDS: NICOTINE 14 MG/24 HOUR PATCH TD SCH (08:53)
[2017-07-03] MEDS: INSULIN DETEMIR 100 UNITS/ML SQ SCH (08:56)
[2017-07-03 14:13] VITALS: BP 106/66
[2017-07-03] MEDS: TraMADol HCL 50 MG TABLET PO PRN (14:13)
[2017-07-03] MEDS: LORazepam 2 MG TABLET PO PRN (16:09)
[2017-07-03 17:59] VITALS: BP 137/71
[2017-07-03] MEDS: QUEtiapine FUMARATE 200 MG TABLET PO SCH (20:06)
[2017-07-03] MEDS: GABAPENTIN 300 MG CAPSULE PO SCH (20:06)
[2017-07-03] MEDS: ZOLPIDEM TARTRATE 10 MG TABLET PO PRN (20:37)
[2017-07-04 06:18] LABS: GLUCOSE COMMENT 1 Received Meds; GLUCOSE,POINT OF CARE 151 MG/DL (70-110)
[2017-07-04] MEDS: INSULIN ASPART 100 UNITS/ML SQ PRN (07:02)
[2017-07-04] MEDS: MetFORMIN HCL 500 MG TABLET PO SCH ×2 (07:02→17:36)
[2017-07-04] MEDS: QUEtiapine FUMARATE 25 MG TABLET PO SCH ×2 (08:36→08:43)
[2017-07-04] MEDS: NICOTINE 14 MG/24 HOUR PATCH TD SCH (08:44)
[2017-07-04] MEDS: INSULIN DETEMIR 100 UNITS/ML SQ SCH (08:46)
[2017-07-04 09:40] VITALS: BP 108/74
[2017-07-04] MEDS: TraMADol HCL 50 MG TABLET PO PRN (12:45)
[2017-07-04] MEDS: HALOPERIDOL 5 MG TABLET PO PRN (12:47)
[2017-07-04] MEDS: LORazepam 2 MG TABLET PO PRN (16:20)
[2017-07-04 18:30] VITALS: BP 121/89
[2017-07-04] MEDS: GABAPENTIN 300 MG CAPSULE PO SCH (20:02)
[2017-07-04] MEDS: QUEtiapine FUMARATE 200 MG TABLET PO SCH (20:02)
[2017-07-05 06:23] LABS: GLUCOSE,POINT OF CARE 114 MG/DL (70-110)
[2017-07-05] MEDS: MetFORMIN HCL 500 MG TABLET PO SCH ×2 (06:40→17:22)
[2017-07-05 08:30] VITALS: BP 101/78
[2017-07-05] MEDS: QUEtiapine FUMARATE 25 MG TABLET PO SCH (08:47)
[2017-07-05] MEDS: INSULIN DETEMIR 100 UNITS/ML SQ SCH (08:48)
[2017-07-05] MEDS: NICOTINE 14 MG/24 HOUR PATCH TD SCH (08:49)
[2017-07-05 13:36] VITALS: BP 115/72
[2017-07-05] MEDS: TraMADol HCL 50 MG TABLET PO PRN (13:36)
[2017-07-05] MEDS: LORazepam 2 MG TABLET PO PRN (13:38)
[2017-07-05 17:59] VITALS: BP 117/61
[2017-07-05] MEDS: ZOLPIDEM TARTRATE 10 MG TABLET PO PRN (20:13)
[2017-07-05] MEDS: GABAPENTIN 300 MG CAPSULE PO SCH (20:13)
[2017-07-05] MEDS: QUEtiapine FUMARATE 200 MG TABLET PO SCH (20:13)
[2017-07-06 06:07] LABS: GLUCOSE,POINT OF CARE 110 MG/DL (70-110)
[2017-07-06] MEDS: MetFORMIN HCL 500 MG TABLET PO SCH ×2 (06:33→17:06)
[2017-07-06] MEDS: INSULIN DETEMIR 100 UNITS/ML SQ SCH (09:00)
[2017-07-06] MEDS: NICOTINE 14 MG/24 HOUR PATCH TD SCH (09:00)
[2017-07-06 10:12] LABS: GLUCOSE,POINT OF CARE 115 MG/DL (70-110)
[2017-07-06 12:44] VITALS: BP 140/96
[2017-07-06] MEDS: LORazepam 2 MG TABLET PO PRN (12:47)
[2017-07-06] MEDS: TraMADol HCL 50 MG TABLET PO PRN (12:47)
[2017-07-06] MEDS: QUEtiapine FUMARATE 25 MG TABLET PO SCH (12:47)
== END 2017-07-06 16:15 | disposition home or self-care (01) | DRG 750 ==
LOC: EMS 12:29 → EEVIPCON 12:29 → 3EI 13:43
DX: F25.1 Schizoaffective disorder, depressive type (principal); F14.20 Cocaine dependence, uncomplicated; R45.851 Suicidal ideations; E11.9 Type 2 diabetes mellitus without complications; F31.9 Bipolar disorder, unspecified; F41.9 Anxiety disorder, unspecified; G89.29 Other chronic pain; M54.9 Dorsalgia, unspecified; R45.850 Homicidal ideations; S30.0XXA Contusion of lower back and pelvis, initial encounter; S39.012A Strain of muscle, fascia and tendon of lower back, initial encounter; W10.9XXA Fall (on) (from) unspecified stairs and steps, initial encounter; F17.210 Nicotine dependence, cigarettes, uncomplicated; Y93.89 Activity, other specified; Y92.89 Other specified places as the place of occurrence of the external cause; Z79.899 Other long term (current) drug therapy; Z91.011 Allergy to milk products; Z83.3 Family history of diabetes mellitus; Z79.4 Long term (current) use of insulin
CPT/HCPCS: 82962; 87081; 99285; 99406; G0480

== ENCOUNTER 2017-07-10 10:07 | Emergency (ER) | payer MEDICAID ==
[~2017-07-10] VITALS: Ht 172.7 cm; Wt 95.5 kg
[2017-07-10 10:23] LABS: GLUCOSE,POINT OF CARE 123 MG/DL (70-110)
[2017-07-10 10:41] LABS: BASOPHILS % (AUTO) 0.4 % (0.0-2.0); EOSINOPHILS % (AUTO) 0.9 % (1.0-6.0); HEMATOCRIT 42.6 % (36-46); HEMOGLOBIN 14.4 g/dL (12.0-16.0); LYMPHOCYTES # (AUTO) 2.7 K/uL (1.0-4.8); LYMPHOCYTES % (AUTO) 40.8 % (22.0-44.0); MEAN CORPUSCULAR HEMOGLOBIN 31.9 pg (26.0-34.0); MEAN CORPUSCULAR HGB CONC 33.7 G/dL (31.0-37.0); MEAN CORPUSCULAR VOLUME 95 fL (80-100); MONOCYTES # (AUTO) 0.6 K/uL (0.1-1.0); MONOCYTES % (AUTO) 9.6 % (2.0-9.0); NEUTROPHILS # (AUTO) 3.2 K/uL (1.8-7.7); NEUTROPHILS % (AUTO) 48.3 % (40.0-70.0); PLATELET COUNT (AUTO) 250 K/uL (150-450); RED CELL DISTRIBUTION WIDTH 13.5 % (11.5-14.5); WHITE BLOOD COUNT (AUTO) 6.7 K/uL (4.5-11.0)
[2017-07-10 10:48] LABS: ANION GAP 8 mmol/L (8-16); CARBON DIOXIDE 26 mmol/L (22-29); CHLORIDE 102 mmol/L (98-107); CREATININE 0.98 mg/dL (0.60-1.30); GLOMERULAR FILTR. RATE CALC > 60 mL/min (>60); POTASSIUM 3.5 mmol/L (3.5-5.1); SODIUM SERUM 136 mmol/L (136-145); UREA NITROGEN, BLOOD 10 mg/dL (7-18)
[2017-07-10 10:54] LABS: ALANINE AMINOTRANSFERASE 79 U/L (12-78); ALBUMIN 3.8 g/dL (3.4-5.0); ASPARTATE AMINOTRANSFERASE 65 U/L (15-37); BILIRUBIN,TOTAL 0.5 mg/dL (0.1-1.0); TOTAL PROTEIN, SERUM 9.5 g/dL (6.4-8.2)
[2017-07-10 14:51] VITALS: BP 129/89
== END 2017-07-10 14:54 | disposition home or self-care (01) ==
LOC: EMS 10:09
DX: F25.9 Schizoaffective disorder, unspecified (principal); E11.9 Type 2 diabetes mellitus without complications; F14.10 Cocaine abuse, uncomplicated; F31.9 Bipolar disorder, unspecified; F17.210 Nicotine dependence, cigarettes, uncomplicated
CPT/HCPCS: 36415; 80053; 80307; 82962; 85025; 99285; 99406; G0480

== ENCOUNTER 2017-09-03 10:28 | Inpatient (IN) | payer MEDICAID ==
[~2017-09-03] VITALS: Ht 172.7 cm; Wt 101.3 kg
[2017-09-03 10:52] LABS: GLUCOSE,POINT OF CARE 135 MG/DL (70-110)
[2017-09-03 12:09] LABS: BASOPHILS % (AUTO) 0.3 % (0.0-2.0); EOSINOPHILS % (AUTO) 0.3 % (1.0-6.0); HEMATOCRIT 43.5 % (36-46); LYMPHOCYTES # (AUTO) 2.7 K/uL (1.0-4.8); LYMPHOCYTES % (AUTO) 32.1 % (22.0-44.0); MEAN CORPUSCULAR HEMOGLOBIN 32.4 pg (26.0-34.0); MEAN CORPUSCULAR HGB CONC 34.4 G/dL (31.0-37.0); MEAN CORPUSCULAR VOLUME 94 fL (80-100); MONOCYTES # (AUTO) 0.6 K/uL (0.1-1.0); MONOCYTES % (AUTO) 7.2 % (2.0-9.0); NEUTROPHILS % (AUTO) 60.1 % (40.0-70.0); PLATELET COUNT (AUTO) 266 K/uL (150-450); RED BLOOD CELL COUNT(AUTO) 4.62 MIL/uL (4.00-5.20); RED CELL DISTRIBUTION WIDTH 13.9 % (11.5-14.5); WHITE BLOOD COUNT (AUTO) 8.4 K/uL (4.5-11.0)
[2017-09-03 12:20] LABS: ANION GAP 11 mmol/L (8-16); CALCIUM, TOTAL 9.8 mg/dL (8.8-10.5); CARBON DIOXIDE 26 mmol/L (22-29); CHLORIDE 101 mmol/L (98-107); CREATININE 0.98 mg/dL (0.60-1.30); GLOMERULAR FILTR. RATE CALC > 60 mL/min (>60); POTASSIUM 3.8 mmol/L (3.5-5.1); SODIUM SERUM 138 mmol/L (136-145); UREA NITROGEN, BLOOD 12 mg/dL (7-18)
[2017-09-03 12:26] LABS: ALANINE AMINOTRANSFERASE 73 U/L (12-78); ASPARTATE AMINOTRANSFERASE 76 U/L (15-37); BILIRUBIN,TOTAL 0.6 mg/dL (0.1-1.0); TOTAL PROTEIN, SERUM 9.9 g/dL (6.4-8.2)
[2017-09-03] MEDS ORDERED: LORazepam 2 MG/ML VIAL IM ONE (15:15)
[2017-09-03] MEDS ORDERED: DiphenhydrAMINE HCL 50 MG/ML VIAL IM ONE (15:15)
[2017-09-03] MEDS ORDERED: HALOPERIDOL LACTATE 5 MG/ML VIAL IM ONE (15:15)
[2017-09-03] MEDS ORDERED: ZOLPIDEM TARTRATE 10 MG TABLET PO PRN (15:30)
[2017-09-03] MEDS: QUEtiapine FUMARATE 100 MG TABLET PO PRN (20:08)
[2017-09-03] MEDS: QUEtiapine FUMARATE 200 MG TABLET PO SCH (21:02)
[2017-09-03 21:11] VITALS: BP 134/74
[2017-09-03] MEDS ORDERED: ACETAMINOPHEN 325 MG TABLET PO PRN (21:30)
[2017-09-03] MEDS ORDERED: DEXTROSE 50%-WATER 25 GM/50 ML SYRINGE IVP PRN (21:30)
[2017-09-03] MEDS ORDERED: IBUPROFEN 400 MG TABLET PO PRN (21:30)
[2017-09-04 06:52] LABS: GLUCOSE COMMENT 1 Received Meds; GLUCOSE,POINT OF CARE 118 MG/DL (70-110)
[2017-09-04] MEDS: INSULIN ASPART 100 UNITS/ML SQ PRN ×4 (06:58→21:35)
[2017-09-04] MEDS: MetFORMIN HCL 500 MG TABLET PO SCH ×2 (06:59→16:22)
[2017-09-04 08:18] VITALS: BP 122/76
[2017-09-04 08:28] VITALS: BP 104/79
[2017-09-04] MEDS ORDERED: PNEUMOCOCCAL VACCINE POLYVALENT 0.5 ML VIAL [PPSV23] IM ONE (08:30)
[2017-09-04 08:32] LABS: GLUCOSE COMMENT 1 Received Meds; GLUCOSE,POINT OF CARE 206 MG/DL (70-110)
[2017-09-04] MEDS: INSULIN DETEMIR 100 UNITS/ML SQ SCH (08:33)
[2017-09-04] MEDS: LORazepam 2 MG TABLET PO PRN ×2 (08:34→16:22)
[2017-09-04] MEDS: QUEtiapine FUMARATE 100 MG TABLET PO PRN ×2 (08:35→16:22)
[2017-09-04 11:27] LABS: GLUCOSE,POINT OF CARE 119 MG/DL (70-110)
[2017-09-04] MEDS ORDERED: IBUPROFEN 400 MG TABLET PO PRN (11:45)
[2017-09-04] MEDS ORDERED: ACETAMINOPHEN 325 MG TABLET PO PRN (11:45)
[2017-09-04 16:15] VITALS: BP 121/86
[2017-09-04 16:32] LABS: GLUCOSE COMMENT 1 FASTING; GLUCOSE,POINT OF CARE 142 MG/DL (70-110)
[2017-09-04] MEDS: NICOTINE 14 MG/24 HOUR PATCH TD SCH (20:16)
[2017-09-04] MEDS: QUEtiapine FUMARATE 200 MG TABLET PO SCH (20:16)
[2017-09-04 20:27] LABS: GLUCOSE COMMENT 1 FASTING; GLUCOSE,POINT OF CARE 190 MG/DL (70-110)
[2017-09-05 06:27] LABS: GLUCOSE,POINT OF CARE 211 MG/DL (70-110)
[2017-09-05] MEDS: MetFORMIN HCL 500 MG TABLET PO SCH ×2 (07:05→16:54)
[2017-09-05] MEDS: INSULIN ASPART 100 UNITS/ML SQ PRN ×2 (07:07→11:43)
[2017-09-05 07:24] LABS: HEMOGLOBIN A1C 6.6 % (4.5-6.2)
[2017-09-05 07:25] LABS: CHOL/HDL RATIO 2.5 (3.9-5.7); THYROID STIMULATING HORMONE 1.71 uIU/mL (0.36-3.74)
[2017-09-05 08:17] LABS: GLUCOSE COMMENT 1 Received Meds; GLUCOSE,POINT OF CARE 175 MG/DL (70-110)
[2017-09-05 08:45] VITALS: BP 105/68
[2017-09-05] MEDS: NICOTINE 14 MG/24 HOUR PATCH TD SCH (09:07)
[2017-09-05] MEDS: INSULIN DETEMIR 100 UNITS/ML SQ SCH (09:10)
[2017-09-05 11:32] LABS: GLUCOSE COMMENT 1 Received Meds; GLUCOSE,POINT OF CARE 185 MG/DL (70-110)
[2017-09-05] MEDS: QUEtiapine FUMARATE 100 MG TABLET PO PRN (14:10)
[2017-09-05 16:32] LABS: GLUCOSE,POINT OF CARE 138 MG/DL (70-110)
[2017-09-05 16:54] VITALS: BP 117/72
[2017-09-05] MEDS: LORazepam 2 MG TABLET PO PRN (16:54)
[2017-09-05] MEDS: QUEtiapine FUMARATE 200 MG TABLET PO SCH (20:33)
[2017-09-05 20:37] LABS: GLUCOSE,POINT OF CARE 132 MG/DL (70-110)
[2017-09-06] MEDS: MetFORMIN HCL 500 MG TABLET PO SCH ×2 (07:09→16:55)
[2017-09-06] MEDS: INSULIN ASPART 100 UNITS/ML SQ PRN ×2 (07:12→11:29)
[2017-09-06 07:17] LABS: GLUCOSE,POINT OF CARE 266 MG/DL (70-110)
[2017-09-06 08:00] VITALS: BP 111/73
[2017-09-06] MEDS: QUEtiapine FUMARATE 100 MG TABLET PO PRN (08:34)
[2017-09-06] MEDS: LORazepam 2 MG TABLET PO PRN ×2 (08:35→17:41)
[2017-09-06] MEDS: INSULIN DETEMIR 100 UNITS/ML SQ SCH (08:36)
[2017-09-06] MEDS: NICOTINE 14 MG/24 HOUR PATCH TD SCH (09:17)
[2017-09-06 11:22] LABS: GLUCOSE,POINT OF CARE 122 MG/DL (70-110)
[2017-09-06] MEDS: ARIPiprazole 10 MG TABLET PO SCH (12:14)
[2017-09-06 17:13] VITALS: BP 112/77
[2017-09-06 20:17] LABS: GLUCOSE,POINT OF CARE 118 MG/DL (70-110)
[2017-09-06 20:17] LABS: GLUCOSE,POINT OF CARE 95 MG/DL (70-110)
[2017-09-06] MEDS: QUEtiapine FUMARATE 200 MG TABLET PO SCH (20:24)
[2017-09-07 06:43] LABS: GLUCOSE,POINT OF CARE 121 MG/DL (70-110)
[2017-09-07] MEDS: MetFORMIN HCL 500 MG TABLET PO SCH ×2 (06:59→16:47)
[2017-09-07 08:39] VITALS: BP 96/69
[2017-09-07] MEDS: ARIPiprazole 10 MG TABLET PO SCH (08:43)
[2017-09-07] MEDS: NICOTINE 14 MG/24 HOUR PATCH TD SCH (08:49)
[2017-09-07] MEDS: INSULIN DETEMIR 100 UNITS/ML SQ SCH (09:05)
[2017-09-07 11:37] LABS: GLUCOSE,POINT OF CARE 181 MG/DL (70-110)
[2017-09-07] MEDS: INSULIN ASPART 100 UNITS/ML SQ PRN ×2 (11:49→18:31)
[2017-09-07] MEDS: LORazepam 2 MG TABLET PO PRN (14:14)
[2017-09-07 16:59] VITALS: BP 128/79
[2017-09-07] MEDS: QUEtiapine FUMARATE 200 MG TABLET PO SCH (20:39)
[2017-09-07 20:57] LABS: GLUCOSE,POINT OF CARE 134 MG/DL (70-110)
[2017-09-08 06:23] LABS: GLUCOSE,POINT OF CARE 139 MG/DL (70-110)
[2017-09-08] MEDS: MetFORMIN HCL 500 MG TABLET PO SCH ×2 (06:39→16:39)
[2017-09-08 08:13] VITALS: BP 111/75
[2017-09-08] MEDS: INSULIN DETEMIR 100 UNITS/ML SQ SCH (09:03)
[2017-09-08 11:17] LABS: GLUCOSE,POINT OF CARE 174 MG/DL (70-110)
[2017-09-08] MEDS: NICOTINE 14 MG/24 HOUR PATCH TD SCH (11:20)
[2017-09-08] MEDS: INSULIN ASPART 100 UNITS/ML SQ PRN ×2 (11:33→21:16)
[2017-09-08] MEDS: LORazepam 2 MG TABLET PO PRN (12:25)
[2017-09-08 16:00] VITALS: BP 121/87
[2017-09-08 16:47] LABS: GLUCOSE COMMENT 1 Received Meds; GLUCOSE COMMENT 2 FASTING; GLUCOSE,POINT OF CARE 121 MG/DL (70-110)
[2017-09-08] MEDS: QUEtiapine FUMARATE 200 MG TABLET PO SCH (20:02)
[2017-09-08 20:12] LABS: GLUCOSE COMMENT 1 FASTING; GLUCOSE,POINT OF CARE 145 MG/DL (70-110)
[2017-09-09 06:52] LABS: GLUCOSE COMMENT 1 Received Meds; GLUCOSE,POINT OF CARE 97 MG/DL (70-110)
[2017-09-09] MEDS: INSULIN ASPART 100 UNITS/ML SQ PRN ×3 (06:58→20:40)
[2017-09-09] MEDS: MetFORMIN HCL 500 MG TABLET PO SCH ×2 (07:00→16:32)
[2017-09-09 08:27] VITALS: BP 119/78
[2017-09-09] MEDS: NICOTINE 14 MG/24 HOUR PATCH TD SCH (09:00)
[2017-09-09] MEDS: INSULIN DETEMIR 100 UNITS/ML SQ SCH (09:03)
[2017-09-09 11:22] LABS: GLUCOSE,POINT OF CARE 137 MG/DL (70-110)
[2017-09-09] MEDS: LORazepam 2 MG TABLET PO PRN (13:29)
[2017-09-09 16:25] VITALS: BP 122/69
[2017-09-09] MEDS: QUEtiapine FUMARATE 200 MG TABLET PO SCH (20:13)
[2017-09-09 20:17] LABS: GLUCOSE,POINT OF CARE 153 MG/DL (70-110)
[2017-09-10] MEDS: MetFORMIN HCL 500 MG TABLET PO SCH ×2 (06:40→17:22)
[2017-09-10 06:42] LABS: GLUCOSE,POINT OF CARE 140 MG/DL (70-110)
[2017-09-10] MEDS: NICOTINE 14 MG/24 HOUR PATCH TD SCH (08:21)
[2017-09-10 08:31] VITALS: BP 109/71
[2017-09-10] MEDS: INSULIN DETEMIR 100 UNITS/ML SQ SCH (08:46)
[2017-09-10 11:48] LABS: GLUCOSE,POINT OF CARE 146 MG/DL (70-110)
[2017-09-10] MEDS: LORazepam 2 MG TABLET PO PRN ×2 (12:13→20:20)
[2017-09-10] MEDS: INSULIN ASPART 100 UNITS/ML SQ PRN ×2 (12:31→21:47)
[2017-09-10 17:13] LABS: GLUCOSE,POINT OF CARE 71 MG/DL (70-110)
[2017-09-10 17:37] VITALS: BP 120/81
[2017-09-10] MEDS: QUEtiapine FUMARATE 200 MG TABLET PO SCH (20:20)
[2017-09-10 20:43] LABS: GLUCOSE,POINT OF CARE 227 MG/DL (70-110)
[2017-09-11 01:19] VITALS: BP 126/85
[2017-09-11 05:37] LABS: GLUCOSE COMMENT 1 Received Meds; GLUCOSE,POINT OF CARE 183 MG/DL (70-110)
[2017-09-11] MEDS: MetFORMIN HCL 500 MG TABLET PO SCH (06:58)
[2017-09-11] MEDS: INSULIN ASPART 100 UNITS/ML SQ PRN (07:00)
[2017-09-11] MEDS ORDERED: QUEtiapine FUMARATE 25 MG TABLET PO SCH (09:00)
[2017-09-11] MEDS: LORazepam 2 MG TABLET PO PRN (09:37)
[2017-09-11] MEDS: NICOTINE 14 MG/24 HOUR PATCH TD SCH (09:38)
[2017-09-11] MEDS: INSULIN DETEMIR 100 UNITS/ML SQ SCH (09:41)
== END 2017-09-11 10:15 | disposition home or self-care (01) | DRG 750 ==
LOC: EMS 10:30 → 3EC 20:26 → 3EI 09-10 12:07
DX: F25.1 Schizoaffective disorder, depressive type (principal); F14.20 Cocaine dependence, uncomplicated; R45.851 Suicidal ideations; E11.9 Type 2 diabetes mellitus without complications; F15.20 Other stimulant dependence, uncomplicated; M54.9 Dorsalgia, unspecified; G89.29 Other chronic pain; F17.210 Nicotine dependence, cigarettes, uncomplicated; S61.519A Laceration without foreign body of unspecified wrist, initial encounter; W45.8XXA Other foreign body or object entering through skin, initial encounter; Y93.89 Activity, other specified; Y92.89 Other specified places as the place of occurrence of the external cause; Y99.8 Other external cause status; Z79.899 Other long term (current) drug therapy; Z91.011 Allergy to milk products
CPT/HCPCS: 82962; 83036; 84443; 96372; 99285; 99406; G0480; J1200; J1630; J2060

== ENCOUNTER 2017-09-28 08:26 | Inpatient (IN) | payer MEDICAID ==
[~2017-09-28] VITALS: Ht 172.7 cm; Wt 102.0 kg
[~2017-09-28 08:26] MED LIST changes: -GABA-531 PO
[2017-09-28] MEDS ORDERED: HALO1 PO (09:31)
[2017-09-28 09:50] LABS: BASOPHILS # (AUTO) 0.06 K/uL (0.00-0.20); BASOPHILS % (AUTO) 0.8 % (0.0-2.0); EOSINOPHILS % (AUTO) 2.61 % (1.0-6.0); HEMATOCRIT 41.9 % (36-46); HEMOGLOBIN 14.1 g/dL (12.0-16.0); LYMPHOCYTES # (AUTO) 2.6 K/uL (1.0-4.8); LYMPHOCYTES % (AUTO) 34.1 % (22.0-44.0); MEAN CORPUSCULAR HEMOGLOBIN 31.4 pg (26.0-34.0); MEAN CORPUSCULAR HGB CONC 33.6 G/dL (31.0-37.0); MEAN CORPUSCULAR VOLUME 93 fL (80-100); MONOCYTES # (AUTO) 0.6 K/uL (0.1-1.0); MONOCYTES % (AUTO) 7.5 % (2.0-9.0); NEUTROPHILS # (AUTO) 4.2 K/uL (1.8-7.7); PLATELET COUNT (AUTO) 286 K/uL (150-450); RED BLOOD CELL COUNT(AUTO) 4.49 MIL/uL (4.00-5.20); RED CELL DISTRIBUTION WIDTH 13.7 % (11.5-14.5)
[2017-09-28 09:52] LABS: GLUCOSE,POINT OF CARE 144 MG/DL (70-110)
[2017-09-28 10:05] LABS: ANION GAP 5 mmol/L (8-16); CARBON DIOXIDE 32 mmol/L (22-29); CHLORIDE 103 mmol/L (98-107); GLOMERULAR FILTR. RATE CALC > 60 mL/min (>60); GLUCOSE,RANDOM 137 mg/dL (70-110); POTASSIUM 3.6 mmol/L (3.5-5.1); SODIUM SERUM 140 mmol/L (136-145); UREA NITROGEN, BLOOD 7 mg/dL (7-18)
[2017-09-28 10:09] LABS: ALANINE AMINOTRANSFERASE 69 U/L (12-78); ALBUMIN 3.7 g/dL (3.4-5.0); ALKALINE PHOSPHATASE 86 U/L (46-116); ASPARTATE AMINOTRANSFERASE 58 U/L (15-37); BILIRUBIN,TOTAL 0.4 mg/dL (0.1-1.0); TOTAL PROTEIN, SERUM 9.2 g/dL (6.4-8.2)
[2017-09-28] MEDS ORDERED: LORazepam 2 MG/ML VIAL IM ONE (10:30)
[2017-09-28] MEDS ORDERED: HALOPERIDOL LACTATE 5 MG/ML VIAL IM ONE (10:30)
[2017-09-28] MEDS ORDERED: DiphenhydrAMINE HCL 50 MG/ML VIAL IM ONE (10:30)
[2017-09-28 10:44] LABS: AMPHET/METH SCREEN,URINE NEGATIVE (NEGATIVE); BARBITURATE SCREEN, URINE NEGATIVE (NEGATIVE); BENZODIAZEPINES SCREEN,URINE NEGATIVE (NEGATIVE); CANNABINOID SCREEN,URINE NEGATIVE (NEGATIVE); COCAINE SCREEN,URINE POSITIVE (NEGATIVE); METHADONE SCREEN, URINE NEGATIVE (NEGATIVE); OPIATE SCREEN,URINE NEGATIVE (NEGATIVE); PHENCYCLIDINE SCREEN,URINE NEGATIVE (NEGATIVE)
[2017-09-28] MEDS ORDERED: ZOLPIDEM TARTRATE 10 MG TABLET PO PRN (11:15)
[2017-09-28] MEDS ORDERED: GuaiFENesin/D-METHORPHAN [SUGAR-FREE] 200-20MG/10 ML SYRUP UDCUP PO ONE (12:00)
[2017-09-28 12:46] LABS: HCG,QUAL RESULT NEGATIVE (NEGATIVE)
[2017-09-28 15:15] VITALS: BP 130/85
[2017-09-28] MEDS: HALOPERIDOL 5 MG TABLET PO PRN (15:59)
[2017-09-28] MEDS: LORazepam 2 MG TABLET PO PRN (15:59)
[2017-09-28 16:07] VITALS: BP 122/82
[2017-09-28] MEDS ORDERED: DEXTROSE 50%-WATER 25 GM/50 ML SYRINGE IVP PRN (16:15)
[2017-09-28] MEDS: NICOTINE 14 MG/24 HOUR PATCH TD SCH (17:52)
[2017-09-28] MEDS: INSULIN ASPART 100 UNITS/ML SQ PRN (17:52)
[2017-09-28] MEDS: MetFORMIN HCL 500 MG TABLET PO SCH (17:52)
[2017-09-28 17:58] LABS: GLUCOMETER DEV NAME(LOC) 3EC; GLUCOSE,POINT OF CARE 205 MG/DL (70-110)
[2017-09-28] MEDS ORDERED: PNEUMOCOCCAL VACCINE POLYVALENT 0.5 ML VIAL [PPSV23] IM ONE (18:15)
[2017-09-28] MEDS ORDERED: INFLUENZA VIRUS VACCINE QVS 2017-18 (3YR+)/PF 60 MCG/0.5 ML SYRINGE IM ONE (18:15)
[2017-09-29 07:02] LABS: GLUCOMETER DEV NAME(LOC) 3EC; GLUCOSE,POINT OF CARE 161 MG/DL (70-110)
[2017-09-29] MEDS: MetFORMIN HCL 500 MG TABLET PO SCH ×2 (07:06→17:28)
[2017-09-29] MEDS: INSULIN ASPART 100 UNITS/ML SQ PRN ×3 (07:07→21:30)
[2017-09-29 07:58] LABS: CHOL/HDL RATIO 2.5 (3.9-5.7)
[2017-09-29] MEDS: INSULIN DETEMIR 100 UNITS/ML SQ SCH (08:54)
[2017-09-29] MEDS: NICOTINE 14 MG/24 HOUR PATCH TD SCH (08:57)
[2017-09-29] MEDS: LORazepam 2 MG TABLET PO PRN (08:57)
[2017-09-29] MEDS: HALOPERIDOL 5 MG TABLET PO PRN (08:57)
[2017-09-29 09:13] VITALS: BP 132/87
[2017-09-29] MEDS: QUEtiapine FUMARATE 25 MG TABLET PO SCH (10:57)
[2017-09-29 11:28] LABS: GLUCOMETER DEV NAME(LOC) 3EC; GLUCOSE,POINT OF CARE 104 MG/DL (70-110)
[2017-09-29] MEDS: ARIPiprazole 10 MG TABLET PO SCH (13:20)
[2017-09-29 17:37] LABS: GLUCOMETER DEV NAME(LOC) 3EC; GLUCOSE,POINT OF CARE 107 MG/DL (70-110)
[2017-09-29] MEDS: QUEtiapine FUMARATE 200 MG TABLET PO SCH (20:52)
[2017-09-29 21:47] LABS: GLUCOMETER DEV NAME(LOC) 3EC; GLUCOSE,POINT OF CARE 176 MG/DL (70-110)
[2017-09-30 06:13] LABS: GLUCOMETER DEV NAME(LOC) 3EC; GLUCOSE,POINT OF CARE 107 MG/DL (70-110)
[2017-09-30] MEDS: MetFORMIN HCL 500 MG TABLET PO SCH ×2 (07:06→16:21)
[2017-09-30] MEDS: LORazepam 2 MG TABLET PO PRN ×2 (08:03→15:37)
[2017-09-30] MEDS: QUEtiapine FUMARATE 25 MG TABLET PO SCH (08:03)
[2017-09-30] MEDS: ARIPiprazole 10 MG TABLET PO SCH (08:03)
[2017-09-30] MEDS: HALOPERIDOL 5 MG TABLET PO PRN ×2 (08:04→15:37)
[2017-09-30 08:07] LABS: GLUCOMETER DEV NAME(LOC) 3EC; GLUCOSE,POINT OF CARE 139 MG/DL (70-110)
[2017-09-30] MEDS: INSULIN DETEMIR 100 UNITS/ML SQ SCH (08:51)
[2017-09-30] MEDS: NICOTINE 14 MG/24 HOUR PATCH TD SCH (09:07)
[2017-09-30 09:08] VITALS: BP 118/88
[2017-09-30 11:23] LABS: GLUCOMETER DEV NAME(LOC) 3EC; GLUCOSE,POINT OF CARE 114 MG/DL (70-110)
[2017-09-30] MEDS: INSULIN ASPART 100 UNITS/ML SQ PRN ×2 (12:49→17:06)
[2017-09-30 16:42] LABS: GLUCOMETER DEV NAME(LOC) 3EC; GLUCOSE,POINT OF CARE 152 MG/DL (70-110)
[2017-09-30] MEDS: QUEtiapine FUMARATE 200 MG TABLET PO SCH (20:37)
[2017-09-30 21:02] LABS: GLUCOMETER DEV NAME(LOC) 3EC; GLUCOSE,POINT OF CARE 109 MG/DL (70-110)
[2017-10-01 06:48] LABS: GLUCOMETER DEV NAME(LOC) 3EC; GLUCOSE,POINT OF CARE 110 MG/DL (70-110)
[2017-10-01] MEDS: MetFORMIN HCL 500 MG TABLET PO SCH ×2 (06:51→16:22)
[2017-10-01 08:00] VITALS: BP 100/65
[2017-10-01] MEDS: QUEtiapine FUMARATE 25 MG TABLET PO SCH (08:40)
[2017-10-01] MEDS: NICOTINE 14 MG/24 HOUR PATCH TD SCH (08:51)
[2017-10-01] MEDS: HALOPERIDOL 5 MG TABLET PO PRN ×2 (08:56→15:55)
[2017-10-01] MEDS: INSULIN DETEMIR 100 UNITS/ML SQ SCH (09:04)
[2017-10-01 11:18] LABS: GLUCOMETER DEV NAME(LOC) 3EC; GLUCOSE,POINT OF CARE 135 MG/DL (70-110)
[2017-10-01] MEDS: LORazepam 2 MG TABLET PO PRN (15:55)
[2017-10-01 16:22] LABS: GLUCOMETER DEV NAME(LOC) 3EC; GLUCOSE,POINT OF CARE 199 MG/DL (70-110)
[2017-10-01 16:52] VITALS: BP 128/86
[2017-10-01] MEDS: INSULIN ASPART 100 UNITS/ML SQ PRN (17:14)
[2017-10-01 20:28] LABS: GLUCOMETER DEV NAME(LOC) 3EC; GLUCOSE,POINT OF CARE 97 MG/DL (70-110)
[2017-10-01] MEDS: QUEtiapine FUMARATE 200 MG TABLET PO SCH (20:46)
[2017-10-02 06:32] LABS: GLUCOMETER DEV NAME(LOC) 3EC; GLUCOSE,POINT OF CARE 142 MG/DL (70-110)
[2017-10-02] MEDS: MetFORMIN HCL 500 MG TABLET PO SCH ×2 (06:47→17:47)
[2017-10-02] MEDS: INSULIN ASPART 100 UNITS/ML SQ PRN ×3 (06:48→21:33)
[2017-10-02] MEDS: HALOPERIDOL 5 MG TABLET PO PRN (08:27)
[2017-10-02] MEDS: QUEtiapine FUMARATE 25 MG TABLET PO SCH (08:27)
[2017-10-02] MEDS: LORazepam 2 MG TABLET PO PRN (08:27)
[2017-10-02 08:35] VITALS: BP 113/86
[2017-10-02] MEDS: INSULIN DETEMIR 100 UNITS/ML SQ SCH (08:50)
[2017-10-02] MEDS: NICOTINE 14 MG/24 HOUR PATCH TD SCH (09:00)
[2017-10-02 11:28] LABS: GLUCOMETER DEV NAME(LOC) 3EC; GLUCOSE,POINT OF CARE 103 MG/DL (70-110)
[2017-10-02] MEDS ORDERED: NICO1PAT49 TD (13:46)
[2017-10-02 16:00] VITALS: BP 108/76
[2017-10-02 16:42] LABS: GLUCOMETER DEV NAME(LOC) 3EC; GLUCOSE,POINT OF CARE 125 MG/DL (70-110)
[2017-10-02] MEDS: QUEtiapine FUMARATE 200 MG TABLET PO SCH (20:07)
[2017-10-02 21:18] LABS: GLUCOMETER DEV NAME(LOC) 3EC; GLUCOSE,POINT OF CARE 159 MG/DL (70-110)
[2017-10-03 05:57] LABS: GLUCOMETER DEV NAME(LOC) 3EC; GLUCOSE,POINT OF CARE 116 MG/DL (70-110)
[2017-10-03] MEDS: MetFORMIN HCL 500 MG TABLET PO SCH (07:08)
[2017-10-03] MEDS: HALOPERIDOL 5 MG TABLET PO PRN (08:37)
[2017-10-03] MEDS: QUEtiapine FUMARATE 25 MG TABLET PO SCH (08:37)
[2017-10-03] MEDS: LORazepam 2 MG TABLET PO PRN (08:37)
[2017-10-03 08:47] LABS: GLUCOMETER DEV NAME(LOC) 3EC; GLUCOSE,POINT OF CARE 125 MG/DL (70-110)
[2017-10-03] MEDS: INSULIN DETEMIR 100 UNITS/ML SQ SCH (08:48)
== END 2017-10-03 10:50 | disposition home or self-care (01) | DRG 750 ==
LOC: EMS 08:29 → 3EC 14:46 → 3EI 10-03 10:16
PROVIDERS: ADMIT Psychiatry & Neurology Child & Adolescent Psychiatry
DX: F25.1 Schizoaffective disorder, depressive type (principal); F14.20 Cocaine dependence, uncomplicated; R45.851 Suicidal ideations; F17.200 Nicotine dependence, unspecified, uncomplicated; F10.10 Alcohol abuse, uncomplicated; F19.10 Other psychoactive substance abuse, uncomplicated; E11.9 Type 2 diabetes mellitus without complications; G89.29 Other chronic pain; M54.9 Dorsalgia, unspecified; Z79.4 Long term (current) use of insulin; Z79.84 Long term (current) use of oral hypoglycemic drugs; Z79.899 Other long term (current) drug therapy
CPT/HCPCS: 82962; 87081; 96372; 99291; G0480; J1200; J1630; J2060

== ENCOUNTER 2017-12-24 05:14 | Inpatient (IN) | payer MEDICAID ==
[~2017-12-24] VITALS: Ht 172.7 cm; Wt 92.1 kg
[~2017-12-24 05:14] MED LIST changes: +INSLAN SQ; -INSU100V12 SQ
[2017-12-24] MEDS ORDERED: HALO5 PO (05:23)
[2017-12-24 05:28] LABS: GLUCOSE,POINT OF CARE 87 MG/DL (70-110)
[2017-12-24 06:26] LABS: BASOPHILS % (AUTO) 0.9 % (0.0-2.0); EOSINOPHILS % (AUTO) 1.6 % (1.0-6.0); HEMOGLOBIN 14.4 g/dL (12.0-16.0); LYMPHOCYTES % (AUTO) 43.7 % (22.0-44.0); MEAN CORPUSCULAR HEMOGLOBIN 31.7 pg (26.0-34.0); MEAN CORPUSCULAR HGB CONC 34.4 G/dL (31.0-37.0); MEAN CORPUSCULAR VOLUME 92 fL (80-100); MONOCYTES # (AUTO) 0.5 K/uL (0.1-1.0); MONOCYTES % (AUTO) 6.8 % (2.0-9.0); NEUTROPHILS # (AUTO) 3.3 K/uL (1.8-7.7); PLATELET COUNT (AUTO) 279 K/uL (150-450); RED BLOOD CELL COUNT(AUTO) 4.56 MIL/uL (4.00-5.20); RED CELL DISTRIBUTION WIDTH 13.5 % (11.5-14.5)
[2017-12-24 06:34] LABS: ANION GAP 9 mmol/L (8-16); CALCIUM, TOTAL 9.4 mg/dL (8.8-10.5); CARBON DIOXIDE 27 mmol/L (22-29); CHLORIDE 106 mmol/L (98-107); CREATININE 0.92 mg/dL (0.60-1.30); GLOMERULAR FILTR. RATE CALC > 60 mL/min (>60); GLUCOSE,RANDOM 83 mg/dL (70-110); POTASSIUM 3.7 mmol/L (3.5-5.1); SODIUM SERUM 142 mmol/L (136-145); UREA NITROGEN, BLOOD 11 mg/dL (7-18)
[2017-12-24 06:40] LABS: ALANINE AMINOTRANSFERASE 92 U/L (12-78); ALBUMIN 3.6 g/dL (3.4-5.0); ALKALINE PHOSPHATASE 89 U/L (46-116); ASPARTATE AMINOTRANSFERASE 97 U/L (15-37); BILIRUBIN,TOTAL 0.5 mg/dL (0.1-1.0); TOTAL PROTEIN, SERUM 8.5 g/dL (6.4-8.2)
[2017-12-24] MEDS ORDERED: QUEtiapine FUMARATE 100 MG TABLET PO ONE (08:15)
[2017-12-24] MEDS ORDERED: ZOLPIDEM TARTRATE 10 MG TABLET PO PRN (08:30)
[2017-12-24] MEDS ORDERED: QUEtiapine FUMARATE 200 MG TABLET PO SCH (09:00)
[2017-12-24] MEDS: QUEtiapine FUMARATE 25 MG TABLET PO SCH (09:12)
[2017-12-24] MEDS ORDERED: INSULIN LISPRO 100 UNITS/ML SQ PRN (10:30)
[2017-12-24] MEDS ORDERED: DEXTROSE 50%-WATER 25 GM/50 ML SYRINGE IVP PRN (10:30)
[2017-12-24 10:35] VITALS: BP 123/81
[2017-12-24] MEDS: NICOTINE 14 MG/24 HOUR PATCH TD SCH (11:41)
[2017-12-24 17:12] LABS: GLUCOMETER DEV NAME(LOC) 3EI B; GLUCOSE,POINT OF CARE 117 MG/DL (70-110)
[2017-12-24] MEDS: MetFORMIN HCL 500 MG TABLET PO SCH (17:20)
[2017-12-24] MEDS: QUEtiapine FUMARATE 200 MG TABLET PO SCH (20:35)
[2017-12-25 05:33] LABS: GLUCOMETER DEV NAME(LOC) 3EI B; GLUCOSE,POINT OF CARE 122 MG/DL (70-110)
[2017-12-25] MEDS: MetFORMIN HCL 500 MG TABLET PO SCH ×3 (06:35→17:20)
[2017-12-25 08:16] VITALS: BP 98/76
[2017-12-25] MEDS ORDERED: ACETAMINOPHEN 325 MG TABLET PO PRN (10:00)
[2017-12-25] MEDS ORDERED: IBUPROFEN 400 MG TABLET PO PRN (10:00)
[2017-12-25] MEDS: NICOTINE 14 MG/24 HOUR PATCH TD SCH (10:18)
[2017-12-25] MEDS: QUEtiapine FUMARATE 25 MG TABLET PO SCH (10:18)
[2017-12-25] MEDS: INSULIN DETEMIR 100 UNITS/ML SQ SCH (10:22)
[2017-12-25] MEDS: LORazepam 2 MG TABLET PO PRN (16:06)
[2017-12-25 16:12] LABS: GLUCOMETER DEV NAME(LOC) 3EI B; GLUCOSE,POINT OF CARE 125 MG/DL (70-110)
[2017-12-25 16:16] VITALS: BP 113/67
[2017-12-25] MEDS: QUEtiapine FUMARATE 200 MG TABLET PO SCH (21:44)
[2017-12-26] MEDS: MetFORMIN HCL 500 MG TABLET PO SCH ×2 (06:49→17:13)
[2017-12-26 07:07] LABS: GLUCOMETER DEV NAME(LOC) 3EI B; GLUCOSE,POINT OF CARE 103 MG/DL (70-110)
[2017-12-26 08:05] VITALS: BP 103/60
[2017-12-26] MEDS: QUEtiapine FUMARATE 25 MG TABLET PO SCH (08:16)
[2017-12-26] MEDS: NICOTINE 14 MG/24 HOUR PATCH TD SCH (08:16)
[2017-12-26] MEDS: INSULIN DETEMIR 100 UNITS/ML SQ SCH (08:18)
[2017-12-26 09:36] LABS: HEMOGLOBIN A1C 6.2 % (4.5-6.2)
[2017-12-26 09:51] LABS: CHOL/HDL RATIO 2.6 (3.9-5.7); THYROID STIMULATING HORMONE 0.78 uIU/mL (0.36-3.74)
[2017-12-26] MEDS: LORazepam 2 MG TABLET PO PRN (14:32)
[2017-12-26 17:03] LABS: GLUCOMETER DEV NAME(LOC) 3EI B; GLUCOSE,POINT OF CARE 150 MG/DL (70-110)
[2017-12-26 17:15] VITALS: BP 112/80
[2017-12-26] MEDS: QUEtiapine FUMARATE 200 MG TABLET PO SCH (20:24)
[2017-12-27 05:33] LABS: GLUCOMETER DEV NAME(LOC) 3EI B; GLUCOSE,POINT OF CARE 121 MG/DL (70-110)
[2017-12-27] MEDS: MetFORMIN HCL 500 MG TABLET PO SCH ×2 (06:38→17:25)
[2017-12-27 09:11] VITALS: BP 105/64
[2017-12-27] MEDS: LORazepam 2 MG TABLET PO PRN (09:17)
[2017-12-27] MEDS: QUEtiapine FUMARATE 25 MG TABLET PO SCH (09:17)
[2017-12-27] MEDS: NICOTINE 14 MG/24 HOUR PATCH TD SCH (09:17)
[2017-12-27] MEDS: INSULIN DETEMIR 100 UNITS/ML SQ SCH (09:18)
[2017-12-27 17:33] LABS: GLUCOMETER DEV NAME(LOC) 3EI B; GLUCOSE,POINT OF CARE 105 MG/DL (70-110)
[2017-12-27] MEDS: QUEtiapine FUMARATE 200 MG TABLET PO SCH (20:41)
[2017-12-28 05:37] LABS: GLUCOMETER DEV NAME(LOC) 3EI B; GLUCOSE,POINT OF CARE 107 MG/DL (70-110)
[2017-12-28] MEDS: MetFORMIN HCL 500 MG TABLET PO SCH ×2 (06:45→16:58)
[2017-12-28 08:34] VITALS: BP 113/66
[2017-12-28] MEDS: QUEtiapine FUMARATE 25 MG TABLET PO SCH (10:45)
[2017-12-28] MEDS: NICOTINE 14 MG/24 HOUR PATCH TD SCH (10:45)
[2017-12-28] MEDS: INSULIN DETEMIR 100 UNITS/ML SQ SCH (10:47)
[2017-12-28] MEDS: HALOPERIDOL 5 MG TABLET PO PRN (15:08)
[2017-12-28] MEDS: LORazepam 2 MG TABLET PO PRN (15:08)
[2017-12-28 17:07] LABS: GLUCOMETER DEV NAME(LOC) 3EI B; GLUCOSE,POINT OF CARE 124 MG/DL (70-110)
[2017-12-28] MEDS: QUEtiapine FUMARATE 200 MG TABLET PO SCH (20:01)
[2017-12-28 20:20] VITALS: BP 119/86
[2017-12-28] MEDS ORDERED: LOPERAMIDE HCL 2 MG CAPSULE PO PRN (20:30)
[2017-12-29 06:02] LABS: GLUCOMETER DEV NAME(LOC) 3EI B; GLUCOSE,POINT OF CARE 107 MG/DL (70-110)
[2017-12-29] MEDS: MetFORMIN HCL 500 MG TABLET PO SCH ×2 (07:08→16:43)
[2017-12-29 08:05] VITALS: BP 108/67
[2017-12-29] MEDS: QUEtiapine FUMARATE 25 MG TABLET PO SCH (10:46)
[2017-12-29] MEDS: NICOTINE 14 MG/24 HOUR PATCH TD SCH (10:47)
[2017-12-29] MEDS: INSULIN DETEMIR 100 UNITS/ML SQ SCH (10:49)
[2017-12-29] MEDS: LORazepam 2 MG TABLET PO PRN ×2 (13:51→20:01)
[2017-12-29 16:21] VITALS: BP 109/79
[2017-12-29 16:33] LABS: GLUCOMETER DEV NAME(LOC) 3EI B; GLUCOSE,POINT OF CARE 108 MG/DL (70-110)
[2017-12-29] MEDS: HALOPERIDOL 5 MG TABLET PO PRN (17:31)
[2017-12-29] MEDS: QUEtiapine FUMARATE 200 MG TABLET PO SCH (20:00)
[2017-12-30 06:08] LABS: GLUCOMETER DEV NAME(LOC) 3EI B; GLUCOSE,POINT OF CARE 140 MG/DL (70-110)
[2017-12-30] MEDS: MetFORMIN HCL 500 MG TABLET PO SCH (07:06)
[2017-12-30 08:30] VITALS: BP 115/71
[2017-12-30] MEDS ORDERED: QUET400T PO (08:50)
[2017-12-30] MEDS ORDERED: QUET50TA PO (08:50)
[2017-12-30] MEDS: QUEtiapine FUMARATE 25 MG TABLET PO SCH (10:05)
[2017-12-30] MEDS: NICOTINE 14 MG/24 HOUR PATCH TD SCH (10:05)
[2017-12-30] MEDS: HALOPERIDOL 5 MG TABLET PO PRN (10:05)
[2017-12-30] MEDS: LORazepam 2 MG TABLET PO PRN (10:05)
[2017-12-30] MEDS: INSULIN DETEMIR 100 UNITS/ML SQ SCH (10:06)
== END 2017-12-30 12:22 | disposition home or self-care (01) | DRG 750 ==
LOC: EMS 05:16 → 3EI 08:23
DX: F25.1 Schizoaffective disorder, depressive type (principal); R45.851 Suicidal ideations; F14.20 Cocaine dependence, uncomplicated; E11.9 Type 2 diabetes mellitus without complications; G89.29 Other chronic pain; M54.30 Sciatica, unspecified side; F17.200 Nicotine dependence, unspecified, uncomplicated; F10.10 Alcohol abuse, uncomplicated; F15.20 Other stimulant dependence, uncomplicated; Z79.899 Other long term (current) drug therapy; Z71.6 Tobacco abuse counseling; Z71.41 Alcohol abuse counseling and surveillance of alcoholic; Z71.51 Drug abuse counseling and surveillance of drug abuser
CPT/HCPCS: 82962; 83036; 84443; 99285; G0480

== ENCOUNTER 2019-03-26 23:08 | Emergency (ER) | payer MEDICAID ==
[~2019-03-26] VITALS: Ht 172.7 cm; Wt 72.7 kg
[~2019-03-26 23:08] MED LIST changes: +METF-960 PO; -METF500T4 PO; -QUET200T PO; -QUET25TA PO
[2019-03-26 23:59] LABS: BASOPHILS % (AUTO) 0.5 % (0.0-2.0); EOSINOPHILS % (AUTO) 0.4 % (1.0-6.0); HEMATOCRIT 36.5 % (36-46); LYMPHOCYTES # (AUTO) 1.4 K/uL (1.0-4.8); LYMPHOCYTES % (AUTO) 12.5 % (22.0-44.0); MEAN CORPUSCULAR HEMOGLOBIN 31.8 pg (26.0-34.0); MEAN CORPUSCULAR VOLUME 97 fL (80-100); MONOCYTES # (AUTO) 1.1 K/uL (0.1-1.0); MONOCYTES % (AUTO) 9.6 % (2.0-9.0); NEUTROPHILS # (AUTO) 8.6 K/uL (1.8-7.7); PLATELET COUNT (AUTO) 224 K/uL (150-450); RED BLOOD CELL COUNT(AUTO) 3.78 MIL/uL (4.00-5.20); RED CELL DISTRIBUTION WIDTH 13.8 % (11.5-14.5)
[2019-03-27 00:08] LABS: GLUCOSE,POINT OF CARE 220 MG/DL (70-110)
[2019-03-27 00:19] LABS: ANION GAP 8 mmol/L (8-16); CALCIUM, TOTAL 9.8 mg/dL (8.8-10.5); CARBON DIOXIDE 29 mmol/L (22-29); CHLORIDE 90 mmol/L (98-107); CREATININE 1.03 mg/dL (0.60-1.30); GLOMERULAR FILTR. RATE CALC > 60 mL/min (>60); GLUCOSE,RANDOM 222 mg/dL (70-110); POTASSIUM 3.5 mmol/L (3.5-5.1); SODIUM SERUM 127 mmol/L (136-145); UREA NITROGEN, BLOOD 16 mg/dL (7-18)
[2019-03-27 00:26] LABS: ALANINE AMINOTRANSFERASE 44 U/L (12-78); ALBUMIN 2.7 g/dL (3.4-5.0); ALKALINE PHOSPHATASE 107 U/L (46-116); ASPARTATE AMINOTRANSFERASE 79 U/L (15-37); BILIRUBIN,TOTAL 0.6 mg/dL (0.1-1.0); TOTAL PROTEIN, SERUM 8.4 g/dL (6.4-8.2)
[2019-03-27] MEDS: ACETAMINOPHEN 325 MG TABLET PO ONE (01:03)
[2019-03-27 01:35] LABS: AMPHET/METH SCREEN,URINE POSITIVE (NEGATIVE); BARBITURATE SCREEN, URINE NEGATIVE (NEGATIVE); BENZODIAZEPINES SCREEN,URINE NEGATIVE (NEGATIVE); CANNABINOID SCREEN,URINE NEGATIVE (NEGATIVE); COCAINE SCREEN,URINE NEGATIVE (NEGATIVE); METHADONE SCREEN, URINE POSITIVE (NEGATIVE); OPIATE SCREEN,URINE POSITIVE (NEGATIVE)
[2019-03-27] MEDS: SODIUM CHLORIDE 0.9% 1,000 ML IV ONE ×2 (01:37→10:02)
[2019-03-27 01:39] LABS: PHENCYCLIDINE SCREEN,URINE NEGATIVE (NEGATIVE)
[2019-03-27 01:41] LABS: HCG,QUANTITATIVE < 1 mIU/mL (0-6)
[2019-03-27 01:44] LABS: ACETAMINOPHEN < 2 mcg/mL (10-30)
[2019-03-27 01:54] LABS: APPEARANCE,URINE CLOUDY (CLEAR); BILIRUBIN,URINE NEGATIVE (NEGATIVE); GLUCOSE, URINE (UA) 100 mg/dL (NEGATIVE); KETONES,URINE 15 mg/dL (NEGATIVE); LEUKOCYTE ESTERASE ,URINE LARGE (NEGATIVE); NITRATE,URINE NEGATIVE (NEGATIVE); OCCULT BLOOD,URINE MODERATE (NEGATIVE); PH,URINE 5.5 (5.0-8.0); PROTEIN,URINE POS 1+ (NEGATIVE)
[2019-03-27 02:03] LABS: ACETONE,BLOOD NEGATIVE (NEGATIVE)
[2019-03-27] MEDS ORDERED: LORazepam 2 MG/ML VIAL IVP ONE (02:15)
[2019-03-27 02:27] LABS: BACTERIA,URINE Many /HPF (None Seen); RBC,URINE 0-2 /HPF (0-2); SQUAMOUS EPITHELIAL CELL,UR Few /LPF (None Seen); WBC,URINE >100 /HPF (0-5)
[2019-03-27] MEDS ORDERED: CefTRIAXone 1 GM/DEXTROSE 50 ML IV ONE (03:41)
[2019-03-27] MEDS: CefTRIAXone 1 GM/DEXTROSE 50 ML IV ONE (03:50)
[2019-03-27] MEDS: SODIUM CHLORIDE 0.9% 2,200 ML IV ONE (03:50)
[2019-03-27 11:32] VITALS: BP 116/90
== END 2019-03-27 12:22 | disposition home or self-care (01) ==
LOC: EMS 23:12
DX: N39.0 Urinary tract infection, site not specified (principal); F19.10 Other psychoactive substance abuse, uncomplicated; R41.82 Altered mental status, unspecified; E11.9 Type 2 diabetes mellitus without complications; F31.9 Bipolar disorder, unspecified; F20.9 Schizophrenia, unspecified; F17.210 Nicotine dependence, cigarettes, uncomplicated; F19.90 Other psychoactive substance use, unspecified, uncomplicated; Z79.84 Long term (current) use of oral hypoglycemic drugs; Z79.4 Long term (current) use of insulin
CPT/HCPCS: 36415; 70450; 71045; 80053; 80307; 81001; 82009; 82948; 82962; 84484; 84702; 85025; 87077; 87086; 87186; 93005; 96361; 96365; 99285; G0480; J0696; J7030 ×2; 51701; G0481

== ENCOUNTER 2019-05-12 13:03 | Emergency (ER) | payer MEDICAID ==
[~2019-05-12] VITALS: Ht 172.7 cm; Wt 72.7 kg
[2019-05-12] MEDS ORDERED: INSLAN SQ (13:22)
[2019-05-12] MEDS ORDERED: INSU100V SQ (13:22)
[2019-05-12] MEDS ORDERED: QUET25TA PO (13:22)
[2019-05-12] MEDS ORDERED: LURA40 PO (13:22)
[2019-05-12] MEDS ORDERED: ONDANSETRON HCL 4 MG/2 ML VIAL IVP ONE (14:45)
[2019-05-12] MEDS ORDERED: SODIUM CHLORIDE 0.9% 1,000 ML IV ONE (14:45)
[2019-05-12 15:56] LABS: BASOPHILS % (AUTO) 1.2 % (0.0-2.0); EOSINOPHILS % (AUTO) 1.5 % (1.0-6.0); HEMATOCRIT 40.3 % (36-46); HEMOGLOBIN 13.3 g/dL (12.0-16.0); LYMPHOCYTES % (AUTO) 66.5 % (22.0-44.0); MEAN CORPUSCULAR HEMOGLOBIN 31.7 pg (26.0-34.0); MEAN CORPUSCULAR HGB CONC 33.1 G/dL (31.0-37.0); MEAN CORPUSCULAR VOLUME 96 fL (80-100); MONOCYTES # (AUTO) 0.3 K/uL (0.1-1.0); MONOCYTES % (AUTO) 4.6 % (2.0-9.0); NEUTROPHILS # (AUTO) 1.6 K/uL (1.8-7.7); NEUTROPHILS % (AUTO) 26.2 % (40.0-70.0); PLATELET COUNT (AUTO) 229 K/uL (150-450); RED CELL DISTRIBUTION WIDTH 13.6 % (11.5-14.5)
[2019-05-12 15:58] LABS: APPEARANCE,URINE CLEAR (CLEAR); BILIRUBIN,URINE NEGATIVE (NEGATIVE); GLUCOSE, URINE (UA) >=1000 mg/dL (NEGATIVE); KETONES,URINE NEGATIVE (NEGATIVE); LEUKOCYTE ESTERASE ,URINE NEGATIVE (NEGATIVE); NITRATE,URINE NEGATIVE (NEGATIVE); OCCULT BLOOD,URINE NEGATIVE (NEGATIVE); PROTEIN,URINE NEGATIVE (NEGATIVE); UROBILINOGEN,URINE 0.2 mg/dL (<=1.0)
[2019-05-12 16:11] LABS: ANION GAP 5 mmol/L (8-16); CALCIUM, TOTAL 10.1 mg/dL (8.8-10.5); CARBON DIOXIDE 29 mmol/L (22-29); CHLORIDE 99 mmol/L (98-107); CREATININE 0.99 mg/dL (0.60-1.30); GLOMERULAR FILTR. RATE CALC > 60 mL/min (>60); GLUCOSE,RANDOM 241 mg/dL (70-110); POTASSIUM 3.4 mmol/L (3.5-5.1); SODIUM SERUM 133 mmol/L (136-145); UREA NITROGEN, BLOOD 7 mg/dL (7-18)
[2019-05-12 16:22] LABS: ALANINE AMINOTRANSFERASE 73 U/L (12-78); ALBUMIN 4.3 g/dL (3.4-5.0); ALKALINE PHOSPHATASE 83 U/L (46-116); ASPARTATE AMINOTRANSFERASE 74 U/L (15-37); BILIRUBIN,TOTAL 0.3 mg/dL (0.1-1.0); HCG,QUANTITATIVE 3 mIU/mL (0-6); TOTAL PROTEIN, SERUM 9.7 g/dL (6.4-8.2)
[2019-05-12 16:23] LABS: BACTERIA,URINE None Seen /HPF (None Seen); RBC,URINE None Seen /HPF (0-2)
[2019-05-12 16:24] LABS: SQUAMOUS EPITHELIAL CELL,UR Rare /LPF (None Seen)
[2019-05-12 16:34] VITALS: BP 106/78
[2019-05-12 16:49] LABS: ACETONE,BLOOD NEGATIVE (NEGATIVE)
== END 2019-05-12 17:29 | disposition home or self-care (01) ==
LOC: EMS 13:05
DX: E11.65 Type 2 diabetes mellitus with hyperglycemia (principal); F31.9 Bipolar disorder, unspecified; F20.9 Schizophrenia, unspecified; F15.90 Other stimulant use, unspecified, uncomplicated; F17.210 Nicotine dependence, cigarettes, uncomplicated; Z79.4 Long term (current) use of insulin; Z79.899 Other long term (current) drug therapy
CPT/HCPCS: 36415; 80053; 81001; 82009; 82962; 84702; 85025; 96361; 96374; 99283; 99406; J2405; J7030

== ENCOUNTER 2019-06-02 09:05 | Inpatient (IN) | payer SELFPAY ==
[~2019-06-02] VITALS: Ht 172.7 cm; Wt 69.6 kg
[~2019-06-02 09:05] MED LIST changes: +INSU100V SQ; +LURA40 PO; +QUET25TA PO
[2019-06-02] MEDS ORDERED: SODIUM CHLORIDE 0.9% 1,000 ML IV ONE (09:22)
[2019-06-02 09:26] LABS: GLUCOSE,POINT OF CARE 562 MG/DL (70-110)
[2019-06-02] MEDS ORDERED: ONDANSETRON HCL 4 MG/2 ML VIAL IVP ONE (09:30)
[2019-06-02] MEDS ORDERED: INSULIN REGULAR, HUMAN 100 UNITS/ML IVP ONE ×2 (09:30→14:30)
[2019-06-02 10:27] LABS: BASOPHILS % (AUTO) 0.5 % (0.0-2.0); EOSINOPHILS % (AUTO) 0.6 % (1.0-6.0); HEMATOCRIT 47.4 % (36-46); HEMOGLOBIN 15.4 g/dL (12.0-16.0); LYMPHOCYTES # (AUTO) 2.2 K/uL (1.0-4.8); LYMPHOCYTES % (AUTO) 43.1 % (22.0-44.0); MEAN CORPUSCULAR HEMOGLOBIN 31.5 pg (26.0-34.0); MEAN CORPUSCULAR HGB CONC 32.5 G/dL (31.0-37.0); MEAN CORPUSCULAR VOLUME 97 fL (80-100); MONOCYTES # (AUTO) 0.3 K/uL (0.1-1.0); MONOCYTES % (AUTO) 5.9 % (2.0-9.0); NEUTROPHILS # (AUTO) 2.5 K/uL (1.8-7.7); NEUTROPHILS % (AUTO) 49.9 % (40.0-70.0); PLATELET COUNT (AUTO) 256 K/uL (150-450); RED BLOOD CELL COUNT(AUTO) 4.89 MIL/uL (4.00-5.20); RED CELL DISTRIBUTION WIDTH 14.4 % (11.5-14.5)
[2019-06-02 10:51] LABS: ALANINE AMINOTRANSFERASE 88 U/L (12-78); ALBUMIN 4.1 g/dL (3.4-5.0); ALKALINE PHOSPHATASE 81 U/L (46-116); ANION GAP 17 mmol/L (8-16); ASPARTATE AMINOTRANSFERASE 94 U/L (15-37); BILIRUBIN,TOTAL 0.5 mg/dL (0.1-1.0); CALCIUM, TOTAL 9.6 mg/dL (8.8-10.5); CARBON DIOXIDE 18 mmol/L (22-29); CHLORIDE 94 mmol/L (98-107); CREATININE 1.32 mg/dL (0.60-1.30); GLOMERULAR FILTR. RATE CALC 52 mL/min (>60); HCG,QUANTITATIVE 2 mIU/mL (0-6); POTASSIUM 3.7 mmol/L (3.5-5.1); SODIUM SERUM 129 mmol/L (136-145); TOTAL PROTEIN, SERUM 9.8 g/dL (6.4-8.2); UREA NITROGEN, BLOOD 18 mg/dL (7-18)
[2019-06-02 10:55] LABS: GLUCOSE,RANDOM 476 mg/dL (70-110)
[2019-06-02 11:00] LABS: ACETONE,BLOOD 1:16 (NEGATIVE)
[2019-06-02 11:02] LABS: GLUCOSE,POINT OF CARE 398 MG/DL (70-110)
[2019-06-02] MEDS ORDERED: INSULIN REGULAR, HUMAN 100 UNITS in SODIUM CHLORIDE 0.9% 99 ML IV PRN ×4 (11:17→14:20)
[2019-06-02] MEDS ORDERED: POTASSIUM CHLORIDE 40 MEQ in SODIUM CHLORIDE 0.45% 1,000 ML IV PRN ×2 (11:17→14:20)
[2019-06-02] MEDS ORDERED: SODIUM CHLORIDE 0.45% 1,000 ML IV PRN ×2 (11:17→14:20)
[2019-06-02] MEDS ORDERED: SODIUM CHLORIDE 0.9% 1,000 ML IV SCH ×2 (11:17→14:20)
[2019-06-02] MEDS ORDERED: POTASSIUM CHL 20 MEQ/0.45% NS 1,000 ML IV PRN ×2 (11:17→14:20)
[2019-06-02] MEDS ORDERED: DEXTROSE 5%-0.45% SODIUM CHL 1,000 ML IV PRN ×2 (11:17→14:20)
[2019-06-02] MEDS ORDERED: INSULIN REGULAR, HUMAN 100 UNITS/ML IVP PRN ×2 (11:30→14:30)
[2019-06-02] MEDS ORDERED: DEXTROSE 50%-WATER 25 GM/50 ML SYRINGE IVP PRN ×3 (11:30→17:30)
[2019-06-02 11:40] LABS: AMPHET/METH SCREEN,URINE NEGATIVE (NEGATIVE); BARBITURATE SCREEN, URINE NEGATIVE (NEGATIVE); BENZODIAZEPINES SCREEN,URINE NEGATIVE (NEGATIVE); CANNABINOID SCREEN,URINE NEGATIVE (NEGATIVE); COCAINE SCREEN,URINE NEGATIVE (NEGATIVE); METHADONE SCREEN, URINE NEGATIVE (NEGATIVE); OPIATE SCREEN,URINE NEGATIVE (NEGATIVE)
[2019-06-02 11:44] LABS: APPEARANCE,URINE CLEAR (CLEAR); BILIRUBIN,URINE NEGATIVE (NEGATIVE); GLUCOSE, URINE (UA) >=1000 mg/dL (NEGATIVE); KETONES,URINE >=80 mg/dL (NEGATIVE); LEUKOCYTE ESTERASE ,URINE NEGATIVE (NEGATIVE); NITRATE,URINE NEGATIVE (NEGATIVE); OCCULT BLOOD,URINE MODERATE (NEGATIVE); PH,URINE 5.5 (5.0-8.0); PROTEIN,URINE NEGATIVE (NEGATIVE); UROBILINOGEN,URINE 0.2 mg/dL (<=1.0)
[2019-06-02] MEDS ORDERED: ACETAMINOPHEN 325 MG TABLET PO PRN ×2 (11:45→14:30)
[2019-06-02] MEDS ORDERED: 0.9% SODIUM CHLORIDE 10 ML SYRINGE IVP PRN (11:45)
[2019-06-02] MEDS ORDERED: ONDANSETRON HCL 4 MG/2 ML VIAL IVP PRN ×2 (11:45→14:30)
[2019-06-02 11:46] LABS: PHENCYCLIDINE SCREEN,URINE NEGATIVE (NEGATIVE)
[2019-06-02 12:48] LABS: BACTERIA,URINE None Seen /HPF (None Seen); SQUAMOUS EPITHELIAL CELL,UR Rare /LPF (None Seen); WBC,URINE 0-2 /HPF (0-5)
[2019-06-02 14:06] LABS: GLUCOSE,POINT OF CARE 347 MG/DL (70-110)
[2019-06-02] MEDS ORDERED: MORPHINE SULFATE 2 MG/ML SYRINGE IVP PRN (14:30)
[2019-06-02] MEDS ORDERED: ZOLPIDEM TARTRATE 5 MG TABLET PO PRN (14:30)
[2019-06-02] MEDS ORDERED: MAGNESIUM HYDROXIDE SUSPENSION 30 ML UDCUP PO PRN (14:30)
[2019-06-02] MEDS ORDERED: BISACODYL 10 MG RECTAL RECTAL SUPPOSITORY PR PRN (14:30)
[2019-06-02] MEDS ORDERED: HYDROCODONE/ACETAMINOPHEN 5-325 MG TABLET PO PRN (14:30)
[2019-06-02 15:05] LABS: BASOPHILS % (AUTO) 0.8 % (0.0-2.0); EOSINOPHILS % (AUTO) 1.1 % (1.0-6.0); HEMATOCRIT 43.4 % (36-46); HEMOGLOBIN 14.1 g/dL (12.0-16.0); LYMPHOCYTES # (AUTO) 2.6 K/uL (1.0-4.8); LYMPHOCYTES % (AUTO) 47.8 % (22.0-44.0); MEAN CORPUSCULAR HEMOGLOBIN 31.2 pg (26.0-34.0); MEAN CORPUSCULAR HGB CONC 32.5 G/dL (31.0-37.0); MEAN CORPUSCULAR VOLUME 96 fL (80-100); MONOCYTES # (AUTO) 0.5 K/uL (0.1-1.0); MONOCYTES % (AUTO) 8.2 % (2.0-9.0); NEUTROPHILS # (AUTO) 2.3 K/uL (1.8-7.7); NEUTROPHILS % (AUTO) 42.1 % (40.0-70.0); PLATELET COUNT (AUTO) 253 K/uL (150-450); RED BLOOD CELL COUNT(AUTO) 4.51 MIL/uL (4.00-5.20); RED CELL DISTRIBUTION WIDTH 13.8 % (11.5-14.5)
[2019-06-02 15:13] LABS: ANION GAP 11 mmol/L (8-16); CALCIUM, TOTAL 8.4 mg/dL (8.8-10.5); CARBON DIOXIDE 22 mmol/L (22-29); CHLORIDE 101 mmol/L (98-107); GLOMERULAR FILTR. RATE CALC > 60 mL/min (>60); GLUCOSE,RANDOM 217 mg/dL (70-110); POTASSIUM 3.3 mmol/L (3.5-5.1); SODIUM SERUM 134 mmol/L (136-145); UREA NITROGEN, BLOOD 14 mg/dL (7-18)
[2019-06-02] MEDS: HEPARIN SODIUM,PORCINE 5,000 UNITS/ML VIAL SQ SCH ×2 (16:15→23:42)
[2019-06-02 16:20] LABS: GLUCOSE,POINT OF CARE 275 MG/DL (70-110)
[2019-06-02] MEDS ORDERED: POTASSIUM CHL 10 MEQ/WATER 50 ML IV PRN (18:00)
[2019-06-02] MEDS: POTASSIUM CHLORIDE 20 MEQ ER TABLET PO PRN (18:53)
[2019-06-02] MEDS: SODIUM CHLORIDE 0.9% 1,000 ML IV SCH (18:54)
[2019-06-02 20:00] VITALS: BP 117/85
[2019-06-02] MEDS ORDERED: LURASIDONE HCL 40 MG TABLET PO SCH (21:00)
[2019-06-02] MEDS: DOCUSATE SODIUM 100 MG CAPSULE PO SCH (21:00)
[2019-06-02] MEDS: INSULIN GLARGINE,HUM.REC.ANLOG 100 UNITS/ML SQ SCH (21:07)
[2019-06-02] MEDS: INSULIN LISPRO 100 UNITS/ML SQ PRN (21:08)
[2019-06-02 22:05] LABS: GLUCOSE,POINT OF CARE 508 MG/DL (70-110)
[2019-06-02 22:37] LABS: CALCIUM, TOTAL 8.3 mg/dL (8.8-10.5); CREATININE 1.17 mg/dL (0.60-1.30); POTASSIUM 3.9 mmol/L (3.5-5.1)
[2019-06-03] VITALS: BP 88/54
[2019-06-03] MEDS ORDERED: INSULIN LISPRO 100 UNITS/ML SQ ONE (00:15)
[2019-06-03 04:00] VITALS: BP 110/77
[2019-06-03] MEDS: INSULIN LISPRO 100 UNITS/ML SQ PRN (05:53)
[2019-06-03 06:34] LABS: ANION GAP 12 mmol/L (8-16); CALCIUM, TOTAL 7.9 mg/dL (8.8-10.5); CARBON DIOXIDE 23 mmol/L (22-29); CHLORIDE 105 mmol/L (98-107); CREATININE 0.87 mg/dL (0.60-1.30); GLOMERULAR FILTR. RATE CALC > 60 mL/min (>60); GLUCOSE,RANDOM 283 mg/dL (70-110); POTASSIUM 3.3 mmol/L (3.5-5.1); SODIUM SERUM 140 mmol/L (136-145); UREA NITROGEN, BLOOD 9 mg/dL (7-18)
[2019-06-03 07:05] LABS: GLUCOSE,POINT OF CARE 190 MG/DL (70-110)
[2019-06-03 07:05] LABS: GLUCOSE,POINT OF CARE 258 MG/DL (70-110)
[2019-06-03] MEDS: SODIUM CHLORIDE 0.9% 1,000 ML IV SCH (07:29)
[2019-06-03] MEDS: HEPARIN SODIUM,PORCINE 5,000 UNITS/ML VIAL SQ SCH ×2 (08:03→10:16)
[2019-06-03] MEDS: POTASSIUM CHLORIDE 20 MEQ ER TABLET PO PRN (08:03)
[2019-06-03] MEDS: DOCUSATE SODIUM 100 MG CAPSULE PO SCH (08:04)
[2019-06-03] MEDS ORDERED: PANTOPRAZOLE SODIUM 40 MG DR TABLET PO SCH (09:00)
[2019-06-03] MEDS: INSULIN GLARGINE,HUM.REC.ANLOG 100 UNITS/ML SQ SCH (09:00)
== END 2019-06-03 10:00 | disposition left against medical advice (07) | DRG 682 ==
LOC: EMS 09:07 → ICU 15:15
PROVIDERS: ADMIT Hospitalist; ATTEND Hospitalist
DX: N17.9 Acute kidney failure, unspecified (principal); E11.10 Type 2 diabetes mellitus with ketoacidosis without coma; E87.1 Hypo-osmolality and hyponatremia; Z53.21 Procedure and treatment not carried out due to patient leaving prior to being seen by health care provider; E86.0 Dehydration; F17.210 Nicotine dependence, cigarettes, uncomplicated; F20.9 Schizophrenia, unspecified; F31.9 Bipolar disorder, unspecified
CPT/HCPCS: 36245; 36569; 76937; 87081; 93005; 96365; 96366; 96375; 99291; G0378; J1644; J1815; J2405; J7030; J7050

== ENCOUNTER 2019-11-04 20:41 | Inpatient (IN) | payer MEDICAID, OTHER ==
[~2019-11-04] VITALS: Ht 172.7 cm; Wt 63.9 kg
[2019-11-04 21:11] LABS: GLUCOSE,POINT OF CARE 403 MG/DL (70-110)
[2019-11-04 22:09] LABS: EOSINOPHILS % (AUTO) 0.5 % (1.0-6.0); HEMOGLOBIN 12.1 g/dL (12.0-16.0); MEAN CORPUSCULAR HEMOGLOBIN 32.9 pg (26.0-34.0); MONOCYTES # (AUTO) 0.5 K/uL (0.1-1.0); NEUTROPHILS # (AUTO) 3.1 K/uL (1.8-7.7); RED BLOOD CELL COUNT(AUTO) 3.69 MIL/uL (4.00-5.20)
[2019-11-04 22:14] LABS: BASOPHILS % (AUTO) 0.9 % (0.0-2.0); HEMATOCRIT 35.7 % (36-46); LYMPHOCYTES # (AUTO) 3.4 K/uL (1.0-4.8); LYMPHOCYTES % (AUTO) 47.9 % (22.0-44.0); MEAN CORPUSCULAR VOLUME 97 fL (80-100); NEUTROPHILS % (AUTO) 43.7 % (40.0-70.0); PLATELET COUNT (AUTO) 274 K/uL (150-450); RED CELL DISTRIBUTION WIDTH 13.2 % (11.5-14.5)
[2019-11-04 22:33] LABS: ALANINE AMINOTRANSFERASE 231 U/L (12-78); ALBUMIN 3.5 g/dL (3.4-5.0); ALKALINE PHOSPHATASE 108 U/L (46-116); ANION GAP 9 mmol/L (8-16); ASPARTATE AMINOTRANSFERASE 201 U/L (15-37); BILIRUBIN,TOTAL 0.3 mg/dL (0.1-1.0); CALCIUM, TOTAL 9.6 mg/dL (8.8-10.5); CARBON DIOXIDE 26 mmol/L (22-29); CHLORIDE 97 mmol/L (98-107); CREATININE 1.01 mg/dL (0.60-1.30); GLOMERULAR FILTR. RATE CALC > 60 mL/min (>60); POTASSIUM 4.1 mmol/L (3.5-5.1); SODIUM SERUM 132 mmol/L (136-145); TOTAL PROTEIN, SERUM 8.6 g/dL (6.4-8.2); UREA NITROGEN, BLOOD 8 mg/dL (7-18)
[2019-11-04 22:35] LABS: GLUCOSE,RANDOM 424 mg/dL (70-110)
[2019-11-05] MEDS ORDERED: INSULIN REGULAR, HUMAN 100 UNITS/ML SQ ONE (01:00)
[2019-11-05] MEDS ORDERED: LURASIDONE HCL 80 MG TABLET PO ONE (01:15)
[2019-11-05] MEDS ORDERED: QUEtiapine FUMARATE 100 MG TABLET PO ONE (01:15)
[2019-11-05] MEDS ORDERED: HYDROCODONE/ACETAMINOPHEN 5-325 MG TABLET PO ONE (01:30)
[2019-11-05] MEDS ORDERED: LORazepam 2 MG TABLET PO PRN (01:45)
[2019-11-05] MEDS ORDERED: HALOPERIDOL 5 MG TABLET PO PRN (01:45)
[2019-11-05] MEDS ORDERED: ZOLPIDEM TARTRATE 10 MG TABLET PO PRN (01:45)
[2019-11-05 02:03] LABS: APPEARANCE,URINE CLEAR (CLEAR); BILIRUBIN,URINE NEGATIVE (NEGATIVE); GLUCOSE, URINE (UA) >=1000 mg/dL (NEGATIVE); KETONES,URINE NEGATIVE (NEGATIVE); LEUKOCYTE ESTERASE ,URINE NEGATIVE (NEGATIVE); NITRATE,URINE NEGATIVE (NEGATIVE); OCCULT BLOOD,URINE NEGATIVE (NEGATIVE); PROTEIN,URINE NEGATIVE (NEGATIVE); UROBILINOGEN,URINE 0.2 mg/dL (<=1.0)
[2019-11-05 02:08] LABS: BACTERIA,URINE None Seen /HPF (None Seen); RBC,URINE 0-2 /HPF (0-2); SQUAMOUS EPITHELIAL CELL,UR Few /LPF (None Seen)
[2019-11-05 02:39] LABS: GLUCOSE,POINT OF CARE 315 MG/DL (70-110)
[2019-11-05] MEDS ORDERED: PNEUMOCOCCAL VACCINE POLYVALENT 0.5 ML VIAL [PPSV23] IM ONE (04:45)
[2019-11-05] MEDS ORDERED: INFLUENZA VIRUS VACCINE QVS 2019-20 (3YR+)/PF 60 MCG/0.5 ML SYRINGE IM ONE (04:45)
[2019-11-05] MEDS ORDERED: ACETAMINOPHEN 325 MG TABLET PO PRN (08:00)
[2019-11-05] MEDS ORDERED: GuaiFENesin/D-METHORPHAN [SUGAR-FREE] 200-20MG/10 ML SYRUP UDCUP PO PRN (08:00)
[2019-11-05] MEDS ORDERED: MAG HYDROX/AL HYDROX/SIMETH ES 30 ML SUSPENSION UDCUP PO PRN (08:00)
[2019-11-05] MEDS ORDERED: GLUCAGON,HUMAN RECOMBINANT 1 MG VIAL IM PRN (08:00)
[2019-11-05] MEDS ORDERED: MAGNESIUM HYDROXIDE SUSPENSION 30 ML UDCUP PO PRN (08:00)
[2019-11-05] MEDS ORDERED: DOCUSATE SODIUM 100 MG CAPSULE PO PRN (08:00)
[2019-11-05] MEDS ORDERED: ONDANSETRON HCL 4 MG TABLET PO PRN (08:00)
[2019-11-05] MEDS ORDERED: CloNIDine HCL 0.1 MG TABLET PO PRN (08:00)
[2019-11-05] MEDS ORDERED: PETROLATUM,WHITE 28 GM JELLY TP PRN (08:00)
[2019-11-05] MEDS ORDERED: NICOTINE 14 MG/24 HOUR PATCH TD PRN (08:00)
[2019-11-05] MEDS ORDERED: ALBUTEROL SULFATE HFA 90 MCG/PUFF 8 GM INHALER IH PRN (08:00)
[2019-11-05] MEDS ORDERED: LOPERAMIDE HCL 2 MG CAPSULE PO PRN (08:00)
[2019-11-05] MEDS: INSULIN LISPRO 100 UNITS/ML SQ PRN ×2 (11:00→17:01)
[2019-11-05 11:13] LABS: GLUCOMETER DEV NAME(LOC) BV2S.; GLUCOSE,POINT OF CARE 317 MG/DL (70-110)
[2019-11-05 16:31] LABS: GLUCOMETER DEV NAME(LOC) BV2S.; GLUCOSE,POINT OF CARE 175 MG/DL (70-110)
[2019-11-05] MEDS: IBUPROFEN 400 MG TABLET PO PRN (16:56)
[2019-11-05 17:59] VITALS: BP 102/70
[2019-11-05] MEDS ORDERED: QUEtiapine FUMARATE 100 MG TABLET PO SCH (21:00)
[2019-11-05 21:20] LABS: GLUCOMETER DEV NAME(LOC) BV2S.; GLUCOSE,POINT OF CARE 586 MG/DL (70-110)
[2019-11-05] MEDS: LURASIDONE HCL 40 MG TABLET PO SCH (21:39)
[2019-11-06] MEDS ORDERED: INSULIN LISPRO 100 UNITS/ML SQ ONE ×3 (01:30→16:15)
[2019-11-06 02:28] LABS: GLUCOMETER DEV NAME(LOC) BV2S.; GLUCOSE,POINT OF CARE 574 MG/DL (70-110)
[2019-11-06 02:28] LABS: GLUCOMETER DEV NAME(LOC) BV2S.; GLUCOSE,POINT OF CARE 542 MG/DL (70-110)
[2019-11-06] MEDS: IBUPROFEN 400 MG TABLET PO PRN ×2 (04:50→17:07)
[2019-11-06] MEDS: LURASIDONE HCL 40 MG TABLET PO SCH ×2 (07:00→17:06)
[2019-11-06] MEDS: MetFORMIN HCL 500 MG TABLET PO SCH ×2 (07:00→17:06)
[2019-11-06] MEDS: INSULIN GLARGINE,HUM.REC.ANLOG 100 UNITS/ML SQ SCH ×2 (09:12→16:38)
[2019-11-06 09:36] LABS: GLUCOMETER DEV NAME(LOC) BV2S.; GLUCOSE,POINT OF CARE 321 MG/DL (70-110)
[2019-11-06] MEDS: INSULIN LISPRO 100 UNITS/ML SQ PRN ×2 (10:57→21:50)
[2019-11-06 11:16] LABS: GLUCOMETER DEV NAME(LOC) BV2S.; GLUCOSE,POINT OF CARE 374 MG/DL (70-110)
[2019-11-06 17:02] LABS: GLUCOMETER DEV NAME(LOC) BV2S.; GLUCOSE,POINT OF CARE 418 MG/DL (70-110)
[2019-11-06 17:07] VITALS: BP 102/74
[2019-11-06 18:11] LABS: GLUCOMETER DEV NAME(LOC) BV2S.; GLUCOSE,POINT OF CARE 223 MG/DL (70-110)
[2019-11-06 20:00] LABS: GLUCOMETER DEV NAME(LOC) BV3N.; GLUCOSE,POINT OF CARE 166 MG/DL (70-110)
[2019-11-06] MEDS ORDERED: QUEtiapine FUMARATE 200 MG TABLET PO SCH (21:00)
[2019-11-07 05:10] VITALS: BP 100/72
[2019-11-07] MEDS: LURASIDONE HCL 40 MG TABLET PO SCH ×2 (06:16→16:29)
[2019-11-07] MEDS: MetFORMIN HCL 500 MG TABLET PO SCH ×2 (06:16→16:29)
[2019-11-07 06:25] LABS: GLUCOMETER DEV NAME(LOC) BV3N.; GLUCOSE,POINT OF CARE 221 MG/DL (70-110)
[2019-11-07] MEDS: INSULIN LISPRO 100 UNITS/ML SQ PRN ×3 (06:26→16:48)
[2019-11-07] MEDS: INSULIN GLARGINE,HUM.REC.ANLOG 100 UNITS/ML SQ SCH ×2 (08:52→16:48)
[2019-11-07 12:03] LABS: GLUCOMETER DEV NAME(LOC) BV3N.; GLUCOSE,POINT OF CARE 344 MG/DL (70-110)
[2019-11-07 16:06] VITALS: BP 109/67
[2019-11-07 16:50] LABS: GLUCOMETER DEV NAME(LOC) BV3N.; GLUCOSE,POINT OF CARE 319 MG/DL (70-110)
== END 2019-11-07 18:20 | disposition home or self-care (01) | DRG 750 ==
LOC: EMS 20:48 → B2S 11-05 01:00 → B3A 11-06 20:19
PROVIDERS: ADMIT Psychiatry & Neurology Psychiatry; ATTEND Psychiatry & Neurology Child & Adolescent Psychiatry
DX: F25.0 Schizoaffective disorder, bipolar type (principal); E11.65 Type 2 diabetes mellitus with hyperglycemia; R45.851 Suicidal ideations; F10.10 Alcohol abuse, uncomplicated; F15.90 Other stimulant use, unspecified, uncomplicated; F17.210 Nicotine dependence, cigarettes, uncomplicated; G89.29 Other chronic pain; M54.30 Sciatica, unspecified side; M54.5 Low back pain
CPT/HCPCS: G0480; J1815